=== PATIENT | female | born 1955 | race African-American/Black ===

== ENCOUNTER 2016-05-27 09:34 | Inpatient (IN) | payer MEDICAID ==
[~2016-05-27] VITALS: Ht 172.7 cm; Wt 80.0 kg
[~2016-05-27 09:34] MED LIST: B/P; DEMEROL50 MG PO; LAMICTAL ODT50 MG PO; PHENERGAN25 M1 PO; PROPRANOLOL HCL20 MG PO; PROVENTIL/2.5 MG/3 M NEB; SYMBICORT 16010.2 GM INH; TOPAMAX50 MG PO; ZOFRAN ODT4 MG/UDTAB PO
[2016-05-27 10:34] LABS: BASOPHILS 0.2 % (0.0-2.0); EOSINOPHILS 2.7 % (0-7); HEMATOCRIT 40.9 % (36.0-48.0); HEMOGLOBIN 13.6 g/dL (12-16); IMMATURE GRANULOCYTES 0.6 % (0-5); LYMPHOCYTES 29.2 % (15-50); MCH 30.8 pg (26.0-34.0); MCHC 33.3 g/dL (31.0-37.0); MCV 92.5 fL (80.0-100.0); MEAN PLATELET VOLUME 11.5 fL (7.4-10.4); MONOCYTES 5.8 % (2-11); NEUTROPHILS 61.5 % (40-80); RBC 4.42 10x6/uL (4.00-5.40); RDW 13.5 % (11.5-14.5); WBC 8.5 10x3/uL (4.8-10.8)
[2016-05-27 10:48] LABS: PLATELET COUNT 250 10x3/uL (130-400)
[2016-05-27 11:04] LABS: ALBUMIN 3.5 g/dL (3.4-5.0); ALKALINE PHOSPHATASE 91 U/L (46-116); ALT (SGPT) 30 U/L (10-68); BILIRUBIN - TOTAL 0.29 mg/dL (0.2-1.3); CALC OSMOLALITY 275 mosm/kg (275-300); CALCIUM 9.6 mg/dL (8.5-10.1); CARBON DIOXIDE 26.7 mmol/L (21.0-32.0); CHLORIDE - SERUM 106 mmol/L (98-107); CREATININE - SERUM 0.8 mg/dL (0.6-1.3); GLUCOSE 99 mg/dL (74-106); POTASSIUM - SERUM 4.5 mmol/L (3.5-5.1); PROTEIN - SERUM 7.6 g/dL (6.4-8.2); SODIUM 139 mmol/L (136-145); UREA NITROGEN 8 mg/dL (7-18); eGFR NON AFRICAN AMERICAN 77 mL/min (90-120)
--- NOTE | 2016-05-27 12:00 | NUR ---
TO ROOM 2235 FROM ER.FAMILY AT SIDE.PT IS WITHOUT DISTRESS AT PRESENT. .ORIENTATION TO ROOM.ASSESSMENT PER FLOW SHEET.IV TO LEFT FOREARM VERY TENDER,WITH SOME SWELLING NOTED.PT C/O DISCOMFORT WHEN IV BEING FLUSHED.IV DCD CATH INTACT.
[2016-05-27 12:54] VITALS: BP 149/93
[2016-05-27 15:18] VITALS: BP 149/93; Ht 172.7 cm; Wt 80.0 kg
--- NOTE | 2016-05-27 15:54 | NUR ---
Patient Name: FERNANDO ELAM Admission Status: ER Accout number: [id number] Admission Date: 05-27-2016 : 1955 Admission Diagnosis: Attending: EARNESTINE Current LOS: 1 Anticipated DC Date: 05-30-2016 Planned Disposition: Home Primary Insurance: MEDICAID [place] Discharge Planning Comments: CM MET WITH PATIENT REGARDING D/C NEEDS AND PLANS. PATIENT STATED SHE LIVES WITH HER SPOUSE (ELISE) AND HE WILL TRANSPORT HER HOME AT DISCHARGE. PATIENT STATED SHE HAS A RAMP TO ENTER HOME AND NO STAIRS ONCE INSIDE. PATIENT STATED SHE IS INDEPENDENT WITH HER CARE AND HAS A CANE AT HOME IF NEEDED. PATIENTS PCP IS DR. CALVERT AND [facility] [address] PATIENT STATED SHE DOES NOT WANT HOME HEALTH AT THIS TIME. CM WILL CONTINUE TO FOLLOW PATIENT WITH D/C NEEDS AND PLANS. [facility] [address] - [phone] ELISE (SPOUSE) [phone] Cylinder Dyer: Teri Larkin Is the patient Alert and Oriented? Yes 0 * How many steps to enter\exit or inside your home? RAMP 0 * PCP DR. CALVERT 0 * [facility] [address] [facility] * Preadmission Environment Home with Family 0 * ADLs Independent 0 * Equipment Cane 0 * List name and contact numbers for known caregivers / representatives who currently or will assist patient after discharge: ELISE (SPOUSE) [phone] * Community resources currently utilized None 0 * Additional services required to return to the preadmission environment? Yes 0 * Can the patient safely return to the preadmission environment? Yes 0 * Has this patient been hospitalized within the prior 30 days at any hospital? No 0 Grand Total: 0
[2016-05-27 16:30] VITALS: BP 131/63
--- NOTE | 2016-05-27 18:23 | NUR ---
REMAINS WITHOUT DISTRESS.STILL HAS WHEEZES THROUGH OUT LUNG CROWDER.DENIES NEEDS AT PRESENT.CONT PLAN OF CARE
[2016-05-27 19:00] VITALS: BP 128/55
--- NOTE | 2016-05-27 21:08 | NUR ---
PRN ZOFRAN ADMINISTERED FOR PT C/O OF NAUSEA WITHOUT EMESIS.
--- NOTE | 2016-05-27 21:45 | NUR ---
C/O PAIN 9/10 AND LOCATED IN BACK AND HEAD. STATES THAT DEMEROL PREVIOUSLY ADMINISTERED NOT EFFECTIVE. EXPLAINED TO PT THAT NURSE PRACTITIONER WOULD BE PAGED FOR NEW ORDERS. PT VERBALIZED UNDERSTANDING. CALL LIGHT IN REACH, BED IN LOW POSITION AND SRX2. AMBULATES TO THE BATHROOM WITH STANDBY ASSIST. OXYGENATION VIA ROOM AIR. ASSESSMENT PERFORMED PER FLOWSHEET, WILL CONTINUE WITH PLAN OF CARE.
--- NOTE | 2016-05-27 23:00 | NUR ---
SCHEDULED MEDICATIONS ADMINISTERED WELL PRN DEMEROL 100MG PER NEW ORDERS. RT ADMINISTERING BREATHING TREATMENT. SCD'S APPLIED TO BILATERAL LOWER EXTREMETIES AND EXPLAINED TO PT. PT VERBALIZES UNDERSTANDING. PROVIDED WITH FRESH ICE WATER. CALL LIGHT IN REACH, WILL CONTINUE WITH PLAN OF CARE.
--- NOTE | 2016-05-27 23:38 | NUR ---
PROVIDED PT WITH SALTINE CRACKERS AND PEANUT BUTTER AT HER REQUEST. DENIES FURTHER NEEDS. WILL CONTINUE WITH PLAN OF CARE.
[2016-05-28] VITALS: BP 143/65
[2016-05-28 04:00] VITALS: BP 125/62
--- NOTE | 2016-05-28 04:24 | NUR ---
PRN DEMEROL ADMINISTERED AT THIS TIME FOR PAIN 8/10 ALONG WITH SCHEDULED AM MEDICATIONS. PT DENIES FURTHER NEEDS. CALL LIGHT IN REACH, WILL CONTINUE WITH PLAN OF CARE.
[2016-05-28 06:44] LABS: BASOPHILS 0 % (0.0-2.0); EOSINOPHILS 0 % (0-7); HEMATOCRIT 35.2 % (36.0-48.0); HEMOGLOBIN 11.5 g/dL (12-16); IMMATURE GRANULOCYTES 0.3 % (0-5); LYMPHOCYTES 8.1 % (15-50); MCHC 32.7 g/dL (31.0-37.0); MEAN PLATELET VOLUME 11.1 fL (7.4-10.4); NEUTROPHILS 89.6 % (40-80); PLATELET COUNT 244 10x3/uL (130-400); RBC 3.96 10x6/uL (4.00-5.40); RDW 13.5 % (11.5-14.5)
[2016-05-28 06:48] LABS: MCV 88.9 fL (80.0-100.0); WBC 14.9 10x3/uL (4.8-10.8)
[2016-05-28 07:19] LABS: ALBUMIN 2.9 g/dL (3.4-5.0); ANION GAP 11.4 mmol/L (8-16); BILIRUBIN - TOTAL 0.2 mg/dL (0.2-1.3); CALCIUM 9.2 mg/dL (8.5-10.1); CARBON DIOXIDE 24.3 mmol/L (21.0-32.0); CREATININE - SERUM 0.9 mg/dL (0.6-1.3); POTASSIUM - SERUM 4.7 mmol/L (3.5-5.1); PROTEIN - SERUM 6.7 g/dL (6.4-8.2)
--- NOTE | 2016-05-28 07:47 | NUR ---
AWAKE AND ALERT. ORIENTED X3. C/O INTENSE MIGRAIN THIS AM WITH NAUSEA. WILL CALL MD FOR IV MED. LUNGS ARE CLEAR BUT SEVERLY DIMINISHED IN BILATERAL LOWER LOBES. PRODUCTIVE COUGH AT TIME. SKIN IS INTACT WITHOUT REDNESS. DENIES NEEDS OTHER THAN FOR HEADACHE. RIGHT MIDLINE TO UPPER ARM PATNET WITHOUT REDNESS AT INSERTION SITE.
[2016-05-28 07:54] VITALS: BP 132/59
--- NOTE | 2016-05-28 08:34 | NUR ---
CALLED AND GOT ORDERS FOR DEMEROL IV TO ALLEVIATE MIGRAIN. GIVEN 12.5 MG SLOW IVP FOR SAME. WILL MONITOR.
--- NOTE | 2016-05-28 09:41 | NUR ---
RESTING QUIETLY WITH EYES CLOSED. REPORTS PAIN IMPROVED AT THIS TIME. FAMILY IN ROOM
[2016-05-28 11:52] VITALS: BP 123/63
[2016-05-28 16:48] VITALS: BP 134/64
--- NOTE | 2016-05-28 18:01 | NUR ---
ATE OVER HALF OF SUPPER. NO C/O AT THIS TIME. DENIES NEEDS. NO CHANGES NOTED.
[2016-05-28 21:18] VITALS: BP 120/51
--- NOTE | 2016-05-28 21:20 | NUR ---
SCHEDULED MEDICATIONS ADMINISTERED AT THIS TIME WELL PRN DEMEROL AND ZOFRAN FOR PAIN AND NAUSEA WITHOUT EMESIS. RIGHT UPPER ARM MIDLINE PATENT WITH BRISK BLOOD RETURN PRESENT. SCD'S OFF PER PT. ASSESSMENT PERFORMED PER FLOWSHEET. SR X2 AND BED IN LOWEST POSITION. WILL CONTINUE WITH PLAN FO CARE, CALL LIGHT IN REACH.
[2016-05-29 06:42] LABS: BASOPHILS 0 % (0.0-2.0); EOSINOPHILS 0 % (0-7); HEMATOCRIT 35.6 % (36.0-48.0); HEMOGLOBIN 11.4 g/dL (12-16); IMMATURE GRANULOCYTES 0.4 % (0-5); LYMPHOCYTES 5.1 % (15-50); MCH 29.8 pg (26.0-34.0); MEAN PLATELET VOLUME 11.6 fL (7.4-10.4); MONOCYTES 2.2 % (2-11); NEUTROPHILS 92.3 % (40-80); PLATELET COUNT 250 10x3/uL (130-400); RBC 3.83 10x6/uL (4.00-5.40); RDW 13.7 % (11.5-14.5)
[2016-05-29 06:44] LABS: WBC 19.6 10x3/uL (4.8-10.8)
[2016-05-29 07:07] LABS: ALBUMIN 2.8 g/dL (3.4-5.0); BILIRUBIN - TOTAL 0.2 mg/dL (0.2-1.3); CALCIUM 8.7 mg/dL (8.5-10.1); CARBON DIOXIDE 23.9 mmol/L (21.0-32.0); PROTEIN - SERUM 6.9 g/dL (6.4-8.2)
[2016-05-29 07:11] LABS: POTASSIUM - SERUM 3.9 mmol/L (3.5-5.1)
--- NOTE | 2016-05-29 07:53 | NUR ---
AWAKE AND ALERT. ORIENTED X3. LUNGS WITH EXPIRATORY WHEEZES THROUGHOUT, OCCASSIONALLY PRODUCTIVE COUGH NOTED. SKIN IS INTACT WITHOUT REDNESS. MIDLINE ACCESS TO RIGHT UPPER ARM PATENT WITHOUT REDNESS AT INSERTION SITE. DENIES NEEDS.
[2016-05-29 08:15] VITALS: BP 125/55
--- NOTE | 2016-05-29 09:46 | NUR ---
GIVEN 12.5MG SLOW IVP DEMEROL FOR C/O MIGRAIN HEADACHE. WILL MONITOR.
[2016-05-29 11:46] VITALS: BP 132/69
--- NOTE | 2016-05-29 12:30 | NUR ---
LUNCH SERVED IN ROOM. ATE ONLY A FEW BITES. STATED SHE WAS NAUSEATED FROM HER MIGRAIN. WILL MONITOR.
--- NOTE | 2016-05-29 13:10 | NUR ---
GIVEN PHENERGAN IM 25MG. WILL MONITOR.
--- NOTE | 2016-05-29 14:00 | NUR ---
RESTING QUIETLY WITH EYES CLOSED. NO NEEDS NOTED.
--- NOTE | 2016-05-29 15:03 | NUR ---
CONTINUES WITH C/O HEADACHE. REQUESTED AND GIVEN 100MG DEMEROL PO FOR SAME. WILL MONITOR.
[2016-05-29 16:10] VITALS: BP 133/66
--- NOTE | 2016-05-29 18:30 | NUR ---
ATE ALMOST HALF OF SUPPER. REPORTS FEELING MUCH BETTER NOW. HEADACHE IS ALMOST GONE. NO CHANGES NOTED. AT BEDSIDE.
[2016-05-29 19:00] VITALS: BP 127/59
--- NOTE | 2016-05-29 20:23 | NUR ---
AWAKE,ALERT, COMPLAINS OF MIGRAINE. DEMEROL 12.5MG GIVEN IV .BILATERAL LUNG SOUNDS WITH CRACKLES NOTED.PICC LINE TO RIGHT ARM INTACT WITH NO REDNESS OR EDEMA NOTED.. CL IN REACH.
[2016-05-30] VITALS: BP 117/53
--- NOTE | 2016-05-30 01:10 | NUR ---
EYES CLOSED RESP EVEN.NO DISTRESS NOTED. CL IN REACH
[2016-05-30 04:00] VITALS: BP 143/70
--- NOTE | 2016-05-30 05:01 | NUR ---
PATIENT SLEEPING ON LEFT SIDE. HOB 30 DEGREES. RR EVEN AND UNLABORED. 0 S/S OF DISTRESS. IV TO RIGHT UPPER ARM PATENT WITH NO REDNESS OR SWELLING. NS INFUSING @ 75. SRX1. BED LOW. CALL LIGHT WITHIN REACH.
--- NOTE | 2016-05-30 06:45 | NUR ---
NO CHANGE IN ASSSESSMENAT
[2016-05-30 07:07] LABS: ALBUMIN 2.5 g/dL (3.4-5.0); ANION GAP 9.9 mmol/L (8-16); BILIRUBIN - TOTAL 0.1 mg/dL (0.2-1.3); CALCIUM 8.6 mg/dL (8.5-10.1); CARBON DIOXIDE 23.8 mmol/L (21.0-32.0); POTASSIUM - SERUM 3.7 mmol/L (3.5-5.1); PROTEIN - SERUM 6.2 g/dL (6.4-8.2)
[2016-05-30 07:30] LABS: BASOPHILS 0.1 % (0.0-2.0); EOSINOPHILS 0 % (0-7); HEMOGLOBIN 11.2 g/dL (12-16); IMMATURE GRANULOCYTES 1.5 % (0-5); LYMPHOCYTES 9.1 % (15-50); MCH 29.7 pg (26.0-34.0); MCV 92.8 fL (80.0-100.0); MEAN PLATELET VOLUME 11.7 fL (7.4-10.4); NEUTROPHILS 84.3 % (40-80); PLATELET COUNT 215 10x3/uL (130-400); RBC 3.77 10x6/uL (4.00-5.40); RDW 13.6 % (11.5-14.5); WBC 16.8 10x3/uL (4.8-10.8)
--- NOTE | 2016-05-30 07:50 | NUR ---
PATIENT GIVEN PAIN MEDICATION FOR SAMANIEGO THAT SHE RATES A 10. MEDICATION GIVEN FOR NAUSEA WELL. IVF INFUSING TO R UPPER ARM ORDERED. MONITORING.
[2016-05-30 08:04] VITALS: BP 133/63
--- NOTE | 2016-05-30 08:43 | NUR ---
PATIENT STATES THAT THE PAIN IN HER HEAD REMAINS AN 8. SHE DECLINES OFFER TO CLOSE HER DOOR, STATES THAT SHE DOESN'T LIKE TO BE CLOSED IN. HER TV IS ON, VOLUME LOW. SHE IS WEARING DARK GLASSES. PLEASANT TO TALK TO. DENIED NEEDS AT THIS TIME.
--- NOTE | 2016-05-30 10:04 | NUR ---
DAUGHTER AND MANY FAMILY MEMBERS AT THE BEDSIDE. TOOK MEDICATIONS. SOLUMEDROL EXPLAINED. DENEID NEEDS AT THIS TIME.
[2016-05-30 11:39] VITALS: BP 135/64
--- NOTE | 2016-05-30 15:35 | NUR ---
PATIENT RESTING QUIETLY WITH LIGHTS OUT, TV ON, VOLUME LOW. AT THE BEDSIDE.
[2016-05-30 15:36] VITALS: BP 135/63
[2016-05-30 19:00] VITALS: BP 138/72
--- NOTE | 2016-05-30 20:14 | NUR ---
AWAKE,ALERT. NO COMPLAINTS VOICED. NS INFUSING TO RIGHT ARM WIHTOUT REDNESS OR EDEMA NOTED. BILATERAL LUNG SOUNDS WIHT WHEEZING NOTED. NONPRODUCTIVE COUGH. CL IN REACCH. FAMILY AT BEDSIDE.
[2016-05-31] VITALS: BP 142/74
--- NOTE | 2016-05-31 00:47 | NUR ---
PATIENT SLEEPING ON LEFT SIDE WITH NO DISTRESS NOTED. HOB 20 DEGREES. RR EVEN AND UNLABORED. IV TO RIGHT ARM PATENT AND INFUSING NS @75. SRX1. BED LOW. CALL LIGHT WITHIN REACH.
[2016-05-31 04:00] VITALS: BP 146/72
[2016-05-31 07:45] LABS: BASOPHILS 0 % (0.0-2.0); EOSINOPHILS 0 % (0-7); HEMOGLOBIN 11.8 g/dL (12-16); IMMATURE GRANULOCYTES 1.6 % (0-5); LYMPHOCYTES 9.5 % (15-50); MCH 29.4 pg (26.0-34.0); MCHC 32.8 g/dL (31.0-37.0); MEAN PLATELET VOLUME 12.2 fL (7.4-10.4); MONOCYTES 5.5 % (2-11); NEUTROPHILS 83.4 % (40-80); PLATELET COUNT 199 10x3/uL (130-400); RBC 4.02 10x6/uL (4.00-5.40); RDW 13.3 % (11.5-14.5); WBC 13.4 10x3/uL (4.8-10.8)
[2016-05-31 07:47] LABS: MCV 89.6 fL (80.0-100.0)
[2016-05-31 07:49] LABS: ALBUMIN 2.7 g/dL (3.4-5.0); ALKALINE PHOSPHATASE 69 U/L (46-116); ALT (SGPT) 20 U/L (10-68); BILIRUBIN - TOTAL 0.16 mg/dL (0.2-1.3); CALC OSMOLALITY 283 mosm/kg (275-300); CHLORIDE - SERUM 109 mmol/L (98-107); CREATININE - SERUM 0.8 mg/dL (0.6-1.3); GLUCOSE 127 mg/dL (74-106); POTASSIUM - SERUM 3.7 mmol/L (3.5-5.1); PROTEIN - SERUM 6.1 g/dL (6.4-8.2); SODIUM 142 mmol/L (136-145); eGFR NON AFRICAN AMERICAN 77 mL/min (90-120)
[2016-05-31 07:50] LABS: UREA NITROGEN 11 mg/dL (7-18)
[2016-05-31 08:10] VITALS: BP 131/71
--- NOTE | 2016-05-31 08:57 | NUR ---
PATIENT IS AWAKE AND ALERT AND ORIENTED X3, SHE SAYS HER PAIN IS IN HER HEAD. C/O MIGRAINE.
--- NOTE | 2016-05-31 09:07 | NUR ---
PATIET C/O NAUSEA. ZOFRAN GIVEN NOW, WILL WAIT TO GIVE PO MEDS TIL AFTER HER ZOFRAN HELPS WITH NAUSEA.
--- NOTE | 2016-05-31 10:14 | NUR ---
PATIENT STILL C/O NAUSEA AND DOES NOT WANT ANY PO MEDS, REQUESTS THAT DR BE CALLED TO GET A STRONGER PAIN MEDICINE.
--- NOTE | 2016-05-31 10:18 | NUR ---
DR. MILLS PAGED TO ASK ABOUT AN INCREASE IN PAIN MEDICATION.
--- NOTE | 2016-05-31 10:21 | NUR ---
DR. MILLS RETURNED PAGE, NEW ORDER RECEIVED DEMEROL 50 MG/PHENERGAN 25 MG IVP ONE TIME ORDER.
--- NOTE | 2016-05-31 10:22 | NUR ---
ORDER IS FOR DEMEROL AND PHENERGAN IM, SEE MAR.
--- NOTE | 2016-05-31 10:40 | NUR ---
PATIENT RECEIVED IM PHENERGAN AND DEMEROL IN RIGHT DELTOID PER PATIENT REQUEST.
--- NOTE | 2016-05-31 11:10 | NUR ---
PATIENT SAYS HER PAIN IS STILL AT 8/10. HAS EYES COVERED WITH BLANKET.
[2016-05-31 11:41] VITALS: BP 126/66
--- NOTE | 2016-05-31 12:01 | NUR ---
CHECKED PATIENT SHE IS BETTER, HAS VISITORS AT BEDSIDE, SAYS SHE IS BETTER, BUT PAIN IS AT 7/10.
[2016-05-31 16:03] VITALS: BP 107/59
--- NOTE | 2016-05-31 17:51 | NUR ---
SPOUSE CALLED TO CHECK ON HER, SHE C/O H/A. BREATHING OK.
--- NOTE | 2016-05-31 18:41 | NUR ---
PATIENT LYING IN BED, HEAD COVERED, DID NOT EAT DINNER.
[2016-05-31 19:00] VITALS: BP 148/66
[2016-06-01] VITALS: BP 130/59
--- NOTE | 2016-06-01 03:45 | NUR ---
PATIENT IN BED WATCHING TV. HOB 10 DEGREES. RR EVEN AND UNLABORED. 0 S/S OF DISTRESS. IV TO RIGHT FA PATENT INFUSING NS @ 75. SCD'S IN ROOM BUT OFF. SRX2. BED LOW. CALL LIGHT WITHIN REACH.
[2016-06-01 04:00] VITALS: BP 136/77
[2016-06-01 06:14] LABS: BASOPHILS 0.1 % (0.0-2.0); EOSINOPHILS 0 % (0-7); HEMATOCRIT 36.4 % (36.0-48.0); IMMATURE GRANULOCYTES 1.4 % (0-5); LYMPHOCYTES 16.7 % (15-50); MCH 29.4 pg (26.0-34.0); MCV 89.2 fL (80.0-100.0); MEAN PLATELET VOLUME 11.7 fL (7.4-10.4); MONOCYTES 6.2 % (2-11); NEUTROPHILS 75.6 % (40-80); PLATELET COUNT 194 10x3/uL (130-400); RBC 4.08 10x6/uL (4.00-5.40); RDW 13.2 % (11.5-14.5)
[2016-06-01 06:42] LABS: ALBUMIN 2.5 g/dL (3.4-5.0); ALKALINE PHOSPHATASE 67 U/L (46-116); ALT (SGPT) 18 U/L (10-68); BILIRUBIN - TOTAL 0.23 mg/dL (0.2-1.3); CALC OSMOLALITY 284 mosm/kg (275-300); CALCIUM 8.8 mg/dL (8.5-10.1); CARBON DIOXIDE 27.8 mmol/L (21.0-32.0); CHLORIDE - SERUM 108 mmol/L (98-107); CREATININE - SERUM 0.8 mg/dL (0.6-1.3); GLUCOSE 127 mg/dL (74-106); POTASSIUM - SERUM 3.3 mmol/L (3.5-5.1); SODIUM 142 mmol/L (136-145); UREA NITROGEN 12 mg/dL (7-18); eGFR NON AFRICAN AMERICAN 77 mL/min (90-120)
--- NOTE | 2016-06-01 07:15 | NUR ---
PATIENT IS UP AND WALKING AROUND IN HER ROOM. PATIENT IS AWAKE, ALERT, AND ORIENTED X4. NO COMPLAINTS OF PAIN OR NAUSEA AT PRESENT TIME. PATIENT DENIES ANY NEEDS AT PRESENT TIME. CALL LIGHT IN REACH. WILL MONITOR PATIENT.
[2016-06-01 07:49] VITALS: BP 150/72
--- NOTE | 2016-06-01 09:25 | NUR ---
PATIENT RESTING QUIETLY IN BED WITH HER EYES CLOSED. ROOM IS DARK. PATIENT AWAKENS TO VERBAL STIMULI. PATIENT COMPLAINS OF PAIN IN HER HEAD AND NAUSEA. NO VOMITING NOTED AT PRESENT TIME. PATIENT RATES HER PAIN LEVEL A "9" ON A 0-10 SCALE. ASSESSMENT COMPLETED PER FLOWSHEET. SCHEDULED MORNING MEDICATIONS GIVEN TO PATIENT. PATIENT TOLERATED WELL WITH WATER. CALL LIGHT IN REACH. WILL CONTINUE TO MONITOR PATIENT.
--- NOTE | 2016-06-01 11:25 | NUR ---
PATIENT RESTING IN BED. ROOM IS DARK. PATIENT WEARING HER SUNGLASSES. PATIENT DENIES ANY NEEDS AT PRESENT TIME. CALL LIGHT IN PATIENT'S REACH. WILL MONITOR.
[2016-06-01 12:22] VITALS: BP 149/72
[2016-06-01 16:00] VITALS: BP 128/80
--- NOTE | 2016-06-01 19:45 | NUR ---
PATIENT LYING IN BED WITH WASHCLOTH OVER EYES MOANING, DAY SHIFT NURSE REPORTED THAT PAIN MEDS WERE DC'D AND MD HAD BEEN PAGED, AWAITNG RETURN CALL, VISITORS IN ROOM, ASSESSMENT COMPLETED, SR'S UP X2, CL IN REACH, WILL MONITOR
[2016-06-01 20:43] VITALS: BP 118/70
--- NOTE | 2016-06-01 21:15 | NUR ---
PATIENT REFUSED ALL MEDS, STATES " I CAN'T HOLD THEM DOWN", FAMILY IN ROOM, VERY IRATE THAT PATIENT HAS NO IV PAIN MEDS, BARBER INSTRUCTOR CONTACTED
--- NOTE | 2016-06-01 22:26 | NUR ---
DEMEROL AND PHENERGAN GIVEN PER MAR, JOHN WELL, CL IN REACH, WILL CONTINUE TO MONITOR
--- NOTE | 2016-06-01 23:13 | NUR ---
PT AGREED TO TAKE INDERAL AND SOLUMEDROL, JOHN WELL, CONTINUES TO WEAR SUN GLASSES, VISITOR IN ROOM
--- NOTE | 2016-06-02 01:40 | NUR ---
RESTING WITH EYES CLOSED, NO DISTRESS NOTED, CL IN REACH
--- NOTE | 2016-06-02 02:49 | NUR ---
DEMEROL GIVEN PER MAR FOR HEADACHE, DENIES OTHER NEEDS, SR'S UP X2, CL IN REACH
[2016-06-02 06:15] LABS: BASOPHILS 0 % (0.0-2.0); EOSINOPHILS 0.1 % (0-7); HEMOGLOBIN 13.5 g/dL (12-16); IMMATURE GRANULOCYTES 0.5 % (0-5); LYMPHOCYTES 10.5 % (15-50); MCH 29.2 pg (26.0-34.0); MCHC 32.9 g/dL (31.0-37.0); MCV 88.7 fL (80.0-100.0); MEAN PLATELET VOLUME 12.2 fL (7.4-10.4); MONOCYTES 1.9 % (2-11); PLATELET COUNT 203 10x3/uL (130-400); RBC 4.62 10x6/uL (4.00-5.40); RDW 13.4 % (11.5-14.5); WBC 12.8 10x3/uL (4.8-10.8)
[2016-06-02 06:33] LABS: ALBUMIN 2.8 g/dL (3.4-5.0); BILIRUBIN - TOTAL 0.36 mg/dL (0.2-1.3); CALCIUM 8.9 mg/dL (8.5-10.1); CREATININE - SERUM 0.9 mg/dL (0.6-1.3); PROTEIN - SERUM 6.8 g/dL (6.4-8.2)
[2016-06-02 06:40] LABS: ANION GAP 12.1 mmol/L (8-16); POTASSIUM - SERUM 4.1 mmol/L (3.5-5.1)
--- NOTE | 2016-06-02 07:32 | NUR ---
AWAKE AND ALERT. ORIENTED X3. C/O MIGRAIN HEADACHE THAT IS UNRELIEVED WITH PAIN MEDS. REQUESTED AND GIVEN 25MG DEMEROL SLOW IVP WITH 25MG PHENERGAN IM FOR SAME. WILL MONITOR. LUNGS ARE CLEAR BUT DIMINISHED THROUGHOUT LUNG CROWDER. OCCASSIONAL DRY COUGH NOTED. SKIN IS INTACT WITHOUT REDNESS. MIDLINE ACCESS TO RIGHT UPPER ARM IS PATENT WITHOUT REDNESS AT INSERTION SITE. DENIES NEEDS. AT BEDSIDE.
[2016-06-02 08:04] VITALS: BP 149/89
--- NOTE | 2016-06-02 10:00 | NUR ---
RESTING QUIETLY WITH EYES CLOSED. REPORTS PAIN IMPROVED SLIGHTLY.
[2016-06-02 11:56] VITALS: BP 124/66
--- NOTE | 2016-06-02 15:09 | NUR ---
RESTING QUEITLY WITH EYES CLOSED. REPORTS SOME RELIEF WITH USE OF DEMEROL.
[2016-06-02 15:59] VITALS: BP 143/76
[2016-06-02 19:00] VITALS: BP 113/47
--- NOTE | 2016-06-02 19:03 | NUR ---
ABLE TO EAT MOST OF SUPPER. REPORTS MIGRAIN ALMOST COMPLETELY GONE
--- NOTE | 2016-06-02 20:15 | NUR ---
PRN DEMEROL AND PHENREGAN GIVEN FOR C/O PAIN AND NAUSEA, JOHN WELL, ASSESSMENT COMPLETED, DENIES FURTHER NEEDS, SR'S UP X2, CL IN REACH, WILL MONITOR
[2016-06-03] VITALS: BP 126/65
--- NOTE | 2016-06-03 00:15 | NUR ---
MAXIPIME HUNG PER MAR, JOHN WELL, CL IN REACH
[2016-06-03 04:00] VITALS: BP 145/73
[2016-06-03 05:03] LABS: BASOPHILS 0 % (0.0-2.0); EOSINOPHILS 0.2 % (0-7); HEMATOCRIT 37.3 % (36.0-48.0); HEMOGLOBIN 12.3 g/dL (12-16); IMMATURE GRANULOCYTES 0.5 % (0-5); MCH 30.3 pg (26.0-34.0); MEAN PLATELET VOLUME 12.2 fL (7.4-10.4); MONOCYTES 4.9 % (2-11); NEUTROPHILS 77.4 % (40-80); RBC 4.06 10x6/uL (4.00-5.40); RDW 13.5 % (11.5-14.5)
[2016-06-03 05:08] LABS: MCV 91.9 fL (80.0-100.0); PLATELET COUNT 160 10x3/uL (130-400); WBC 16.6 10x3/uL (4.8-10.8)
[2016-06-03 05:23] LABS: ALBUMIN 2.5 g/dL (3.4-5.0); BILIRUBIN - TOTAL 0.2 mg/dL (0.2-1.3); CALCIUM 7.9 mg/dL (8.5-10.1); CARBON DIOXIDE 26.5 mmol/L (21.0-32.0); CREATININE - SERUM 0.9 mg/dL (0.6-1.3); PROTEIN - SERUM 5.5 g/dL (6.4-8.2)
[2016-06-03 05:28] LABS: ANION GAP 9.7 mmol/L (8-16); POTASSIUM - SERUM 3.2 mmol/L (3.5-5.1)
[2016-06-03 08:07] VITALS: BP 138/65
--- NOTE | 2016-06-03 09:00 | NUR ---
ASSESSMENT PER FLOW SHEET.PT WITHOUT DISTRESS.CALL LIGHT IN REACH
[2016-06-03 12:09] VITALS: BP 137/69
--- NOTE | 2016-06-03 14:32 | NUR ---
NUTRITION MONITORING & EVAL CHART REVIEWED. PT CONTINUES SPORADIC INTAKE REG DIET. REMAINS AT LOW NUTRITIONAL RISK. RD FOLLOWING
[2016-06-03] MEDS ORDERED: MUCINEX DM ER1 EAC1 PO (14:33)
[2016-06-03] MEDS ORDERED: BENZONATATE200 MG PO (14:33)
[2016-06-03] MEDS ORDERED: SINGULAIR10 MG PO (14:33)
[2016-06-03] MEDS ORDERED: LEVAQUIN750 MG PO (14:35)
[2016-06-03] MEDS ORDERED: OMNICEF300 MG PO (14:36)
[2016-06-03] MEDS ORDERED: PREDNISONE20 MG PO (14:36)
[2016-06-03] MEDS ORDERED: ALBUTEROL2.5 MG/3 M UPD (14:58)
[2016-06-03] MEDS ORDERED: PROTONIX40 MG PO (15:05)
[2016-06-03 16:37] VITALS: BP 148/84
--- NOTE | 2016-06-03 18:02 | NUR ---
IV DCD CATH INTACT.DISCHARGE INSTRUCTIONS,STATES UNDERSTANDING.LEFT FLOOR VIA WHEELCHAIR FOR TRANSPORT HOME
--- NOTE | 2016-06-19 09:12 | CN ---
PATIENT NAME:FERNANDO ELAM MEDICAL RECORD: [id number] : 53 LOCATION:[id number] ADMIT DATE: 05/27/16 ACCOUNT: [id number] CONSULTING PHYSICIAN: SUSANA HARRIS MD REFERRING PHYSICIAN: ABELINO MORALES MD DATE OF CONSULTATION: 05/27/2016 Pulmonary Consultation CONSULT REQUESTING PHYSICIAN: Abelino Morales MD REASON FOR CONSULTATION: Pneumonia, acute exacerbation of asthma. HISTORY OF PRESENT ILLNESS: Ms. Elam is a 61-year-old very pleasant lady who just came back from cruise vacation. Two weeks ago, she was sick and she was seen in Dr. Calvert' office. She was given some antibiotic, but the patient was not getting any better. She had worsening shortness of breath. She was wheezing. She was coughing. Cough with productive yellow color sputum production. She has shortness of breath with mild exertion. She has a spasmodic cough, which keeps her awake at night. She does have a gastroesophageal reflux. According to the patient, sometimes it flares up and she has regurgitation. REVIEW OF SYSTEMS: Mainly in the history of present illness. PAST MEDICAL HISTORY: 1. Asthma. 2. Gastroesophageal reflux disease. 3. She has a history of allergic sinusitis. 4. Migraine headache. PAST SURGICAL HISTORY: 1. Cholecystectomy. 2. Hysterectomy. 3. Exploratory laparotomy in the past. ALLERGIES: SHE IS ALLERGIC TO VICODIN, POSSIBLE TYLENOL, STADOL, THORAZINE, CODEINE, VICODIN, COMPAZINE, AND IMITREX. PRESENT MEDICATIONS: On [employer] was reviewed. PERSONAL AND SOCIAL HISTORY: The patient is . She lives with her . She is a nonsmoker and nondrinker. FAMILY HISTORY: Noncontributory. PHYSICAL EXAMINATION: GENERAL: Now, the patient is lying comfortably in bed. She is not in acute distress, but she has audible wheeze. VITAL SIGNS: The blood pressure is 149/93, pulse is 95, temperature 98.8, and SpO2 is 95% on room air. HEENT: Conjunctivae are pink, sclerae nonicteric. NECK: Supple. No JVD. The throat is congested. CHEST: There is prolonged expiration with wheezing. There is right basal crackle. CONSULT REPORT [id number] FERNANDO ELAM HEART: Regular, normal sound, no murmur. ABDOMEN: Soft, bowel sounds present. No hepatosplenomegaly. RECTAL: Deferred. EXTREMITIES: No cyanosis, no clubbing, no pedal edema. SKIN: Warm, normal turgor. CENTRAL NERVOUS SYSTEM: The patient is awake and alert. There is no obvious cranial nerve abnormality. The gait was not tested. DIAGNOSTIC DATA: Chest radiograph: There is ill-defined infiltrate at the right base. LABORATORY DATA: CBC: WBC 8.5, hemoglobin 13.6, hematocrit 40.9 and the platelet count is 250. Chemistry: Sodium is 139, potassium 4.5, BUN is 8, creatinine 0.8. ABG: The pH is 7.38, pCO2 of 37.7, pO2 is 85, and bicarbonate 2.8. IMPRESSION: 1. Acute exacerbation of asthma. 2. Pneumonia, right lower lobe, most likely consistent with a community-acquired pneumonia. 3. Wheezing secondary to asthma exacerbation. 4. Acute cough. 5. Dyspnea. 6. Migraine headache. 7. Gastroesophageal reflux disease. RECOMMENDATION: 1. GERD precautions were given. 2. Continue Protonix, albuterol and ipratropium nebulizer q.4 hourly, budesonide and Brovana nebulizer b.i.d., Singulair 10 mg daily, methylprednisolone 60 MG IV q.8 hourly. Repeat the chest radiograph in the morning. Check IgE level. Follow up labs in the morning. Dr. Morales, once again, thank you for involving me in the care of Ms. Elam. TRANSINT:[id number] Voice Confirmation ID: [id number] DOCUMENT ID: [id number] SUSANA HARRIS MD at 0912 CC: JUVENTINO CALVERT MD [id number] DICTATION DATE: 05/27/16 1542 HUMIDIFIER OPERATOR: 05/27/16 1635 DIS IN 06/03/16 [id number] [place] [address]
== END 2016-06-03 18:05 | disposition home or self-care (01) | DRG 178 ==
LOC: D.ER 09:34 → D.MS 11:17
PROVIDERS: Emergency Medicine; ADMIT Family Medicine Adult Medicine
PROC: 05HB33Z Insertion of Infusion Device into Right Basilic Vein, Percutaneous Approach (ICD-10-PCS; principal; 2016-05-27)
DX: J15.6 Pneumonia due to other Gram-negative bacteria (principal); J45.901 Unspecified asthma with (acute) exacerbation; J90 Pleural effusion, not elsewhere classified; K21.9 Gastro-esophageal reflux disease without esophagitis; G43.909 Migraine, unspecified, not intractable, without status migrainosus

== ENCOUNTER 2016-06-10 07:58 | Emergency (ER) | payer MEDICAID ==
[2016-05-27 15:18] VITALS: BMI 26.8
[~2016-06-10 07:58] MED LIST changes: +ALBUTEROL2.5 MG/3 M UPD; +BENZONATATE200 MG PO; +LEVAQUIN750 MG PO; +MUCINEX DM ER1 EAC1 PO; +OMNICEF300 MG PO; +PREDNISONE20 MG PO; +PROTONIX40 MG PO; +SINGULAIR10 MG PO
== END 2016-06-10 08:52 | disposition home or self-care (01) ==
LOC: D.ER 07:58
DX: J01.90 Acute sinusitis, unspecified (principal); J45.909 Unspecified asthma, uncomplicated; K58.9 Irritable bowel syndrome, unspecified

== ENCOUNTER → 2016-06-12 11:58 | Outpatient (CLI) | payer MEDICAID ==
[2016-06-12 12:45] VITALS: BP 141/64; Ht 172.7 cm
--- NOTE | 2016-06-12 12:47 | NUR ---
1220 PATIENT HERE WITH MIGRAINE HEADACHE, BAD COUGH ALSO FROM RECENT PNEUMONIA NOTED, GIVEN DEMEROL 100MG AND 25MG PHENERGAN IM TO RIGHT THIGH REQUESTED. NO PROBLEMS WITH INJECTION 1230 PATIENT WITHOUT PROBLEMS FROM INJECTION NOTED, DISCHARGED IN WHEELCHAIR TO TO GO HOME STABLE.
== END | disposition home or self-care (01) ==
LOC: D.OPS 11:58
DX: G43.909 Migraine, unspecified, not intractable, without status migrainosus (principal)

== ENCOUNTER 2016-07-03 17:09 | Outpatient (CLI) | payer MEDICAID ==
[~2016-07-03] VITALS: Ht 172.7 cm; Wt 80.0 kg
[2016-07-03 17:44] VITALS: BP 148/91; Ht 172.7 cm; Wt 80.0 kg
--- NOTE | 2016-07-03 18:23 | NUR ---
1752 DEMEROL 100MG AND PHENERGAN 25 MG GIVEN IM RT THIGH. PAIN LEVELA 10.
--- NOTE | 2016-07-03 18:24 | NUR ---
1813 PAIN A 7 DISCHARGE INSTRUCTIONS GIVEN AND PATIENT LEFT VIA W/C AND INSTRUCTED NO DRIVING ACCOMPAANIED BY .
== END 2016-07-03 18:15 | disposition home or self-care (01) ==
LOC: D.OPS 17:09
DX: R51 Headache (principal)

== ENCOUNTER 2016-07-09 16:18 | Outpatient (CLI) | payer MEDICAID ==
[~2016-07-09] VITALS: Ht 172.7 cm; Wt 77.3 kg
[2016-07-09 17:32] VITALS: BP 147/78; Ht 172.7 cm; Wt 77.3 kg
== END 2016-07-09 17:45 | disposition home or self-care (01) ==
LOC: D.OPS 16:18
DX: G43.909 Migraine, unspecified, not intractable, without status migrainosus (principal)

== ENCOUNTER 2016-07-21 09:32 | Emergency (ER) | payer MEDICAID ==
[2016-07-09 17:32] VITALS: BMI 25.9
== END 2016-07-21 13:29 | disposition home or self-care (01) ==
LOC: D.ER 09:32
DX: G43.909 Migraine, unspecified, not intractable, without status migrainosus (principal); R11.2 Nausea with vomiting, unspecified; J45.909 Unspecified asthma, uncomplicated; K58.9 Irritable bowel syndrome, unspecified

== ENCOUNTER → 2016-08-01 09:52 | Outpatient (CLI) | payer MEDICAID ==
[2016-07-09 17:32] VITALS: BMI 25.9
== END | disposition home or self-care (01) ==
LOC: D.RT 09:52
DX: J45.909 Unspecified asthma, uncomplicated (principal)

== ENCOUNTER 2016-08-04 17:33 | Emergency (ER) | payer MEDICAID ==
[2016-07-09 17:32] VITALS: BMI 25.9
== END 2016-08-04 20:09 | disposition home or self-care (01) ==
LOC: D.ER 17:33
DX: R51 Headache (principal); K58.9 Irritable bowel syndrome, unspecified; J45.909 Unspecified asthma, uncomplicated

== ENCOUNTER 2016-08-08 16:14 | Outpatient (CLI) | payer MEDICAID ==
[~2016-08-08] VITALS: Ht 172.7 cm; Wt 78.6 kg
[2016-08-08 16:42] VITALS: BP 131/69; Ht 172.7 cm; Wt 78.6 kg
== END 2016-08-08 17:03 | disposition home or self-care (01) ==
LOC: D.OPS 16:14
DX: G43.909 Migraine, unspecified, not intractable, without status migrainosus (principal)

== ENCOUNTER 2016-08-14 07:05 | Emergency (ER) | payer MEDICAID ==
[2016-08-08 16:42] VITALS: BMI 26.3
[2016-08-14 08:45] LABS: APPEARANCE SLT CLOUDY (CLEAR); COLOR YELLOW (YELLOW)
[2016-08-14 08:46] LABS: BILIRUBIN NEGATIVE (NEGATIVE); GLUCOSE NEGATIVE (NEGATIVE); KETONE NEGATIVE (NEGATIVE); LEUKOCYTE ESTERASE TRACE (NEGATIVE); NITRITE NEGATIVE (NEGATIVE); PROTEIN NEGATIVE (NEGATIVE); UROBILINOGEN NORMAL (NORMAL)
[2016-08-14 08:47] LABS: BACTERIA FEW /hpf (NONE SEEN); MUCUS >1+ /lpf (NONE SEEN); RED CELLS - URINE OCC /hpf (0-5); WHITE CELLS - URINE 0-5 /hpf (0-5)
[2016-08-14 09:53] LABS: BASOPHILS 0.3 % (0.0-2.0); EOSINOPHILS 1.4 % (0-7); HEMATOCRIT 38.7 % (36.0-48.0); HEMOGLOBIN 12.7 g/dL (12-16); IMMATURE GRANULOCYTES 0.3 % (0-5); MCH 28.7 pg (26.0-34.0); MCHC 32.8 g/dL (31.0-37.0); MCV 87.6 fL (80.0-100.0); MEAN PLATELET VOLUME 12.6 fL (7.4-10.4); MONOCYTES 6.3 % (2-11); NEUTROPHILS 56.7 % (40-80); PLATELET COUNT 161 10x3/uL (130-400); RBC 4.42 10x6/uL (4.00-5.40); RDW 13.3 % (11.5-14.5); WBC 6.3 10x3/uL (4.8-10.8)
[2016-08-14 10:09] LABS: ALBUMIN 3.4 g/dL (3.4-5.0); ALKALINE PHOSPHATASE 93 U/L (46-116); ALT (SGPT) 16 U/L (10-68); BILIRUBIN - TOTAL 0.39 mg/dL (0.2-1.3); CALC OSMOLALITY 283 mosm/kg (275-300); CALCIUM 8.5 mg/dL (8.5-10.1); CARBON DIOXIDE 31.4 mmol/L (21.0-32.0); CHLORIDE - SERUM 106 mmol/L (98-107); CREATININE - SERUM 0.8 mg/dL (0.6-1.3); GLUCOSE 106 mg/dL (74-106); LIPASE 82 U/L (73-393); POTASSIUM - SERUM 3.2 mmol/L (3.5-5.1); PROTEIN - SERUM 6.8 g/dL (6.4-8.2); SODIUM 144 mmol/L (136-145); TROPONIN-I < 0.017 ng/mL (0.000-0.060); UREA NITROGEN 5 mg/dL (7-18); eGFR NON AFRICAN AMERICAN 77 mL/min (90-120)
== END 2016-08-14 11:05 | disposition home or self-care (01) ==
LOC: D.ER 07:05
PROVIDERS: Emergency Medicine
DX: N61.0 Mastitis without abscess (principal); R10.13 Epigastric pain; J45.909 Unspecified asthma, uncomplicated; K58.9 Irritable bowel syndrome, unspecified

== ENCOUNTER 2016-09-02 16:44 | Outpatient (CLI) | payer MEDICAID ==
[~2016-09-02] VITALS: Ht 172.7 cm; Wt 80.9 kg
[2016-09-02 17:48] VITALS: Ht 172.7 cm; Wt 80.9 kg
== END 2016-09-02 18:09 | disposition home or self-care (01) ==
LOC: D.OPS 16:44
DX: G43.909 Migraine, unspecified, not intractable, without status migrainosus (principal)

== ENCOUNTER 2016-09-11 13:54 | Emergency (ER) | payer MEDICAID ==
[2016-09-02 17:48] VITALS: BMI 27.1
== END 2016-09-11 16:05 | disposition home or self-care (01) ==
LOC: D.ER 13:54
DX: G43.909 Migraine, unspecified, not intractable, without status migrainosus (principal); K58.9 Irritable bowel syndrome, unspecified

== ENCOUNTER 2016-09-18 06:41 | Emergency (ER) | payer MEDICAID ==
[2016-09-02 17:48] VITALS: BMI 27.1
== END 2016-09-18 08:10 | disposition home or self-care (01) ==
LOC: D.ER 06:41
DX: G43.909 Migraine, unspecified, not intractable, without status migrainosus (principal); J45.909 Unspecified asthma, uncomplicated; K58.9 Irritable bowel syndrome, unspecified

== ENCOUNTER → 2016-10-17 07:04 | Outpatient (CLI) | payer MEDICAID ==
[2016-09-02 17:48] VITALS: BMI 27.1
== END | disposition home or self-care (01) ==
LOC: D.CT 07:04
DX: G43.109 Migraine with aura, not intractable, without status migrainosus (principal)

== ENCOUNTER 2016-10-25 08:12 | Emergency (ER) | payer MEDICAID ==
[2016-09-02 17:48] VITALS: BMI 27.1
== END 2016-10-25 09:35 | disposition home or self-care (01) ==
LOC: D.ER 08:12
DX: G43.909 Migraine, unspecified, not intractable, without status migrainosus (principal)

== ENCOUNTER 2016-11-08 13:50 | Emergency (ER) | payer MEDICAID ==
[2016-09-02 17:48] VITALS: BMI 27.1
== END 2016-11-08 17:58 | disposition home or self-care (01) ==
LOC: D.ER 13:50
DX: R51 Headache (principal); G43.909 Migraine, unspecified, not intractable, without status migrainosus

== ENCOUNTER 2016-11-22 08:52 | Emergency (ER) | payer MEDICAID ==
[2016-09-02 17:48] VITALS: BMI 27.1
== END 2016-11-22 11:25 | disposition home or self-care (01) ==
LOC: D.ER 08:52
DX: G43.909 Migraine, unspecified, not intractable, without status migrainosus (principal); J45.909 Unspecified asthma, uncomplicated; K58.9 Irritable bowel syndrome, unspecified

== ENCOUNTER 2016-12-04 14:28 | Emergency (ER) | payer MEDICAID ==
[2016-09-02 17:48] VITALS: BMI 27.1
== END 2016-12-04 16:03 | disposition home or self-care (01) ==
LOC: D.ER 14:28
DX: G43.909 Migraine, unspecified, not intractable, without status migrainosus (principal); E86.0 Dehydration; J45.909 Unspecified asthma, uncomplicated; K58.9 Irritable bowel syndrome, unspecified

== ENCOUNTER 2017-01-06 12:12 | Emergency (ER) | payer MEDICAID ==
[2016-09-02 17:48] VITALS: BMI 27.1
== END 2017-01-06 14:08 | disposition home or self-care (01) ==
LOC: D.ER 12:12
DX: G43.909 Migraine, unspecified, not intractable, without status migrainosus (principal); J01.90 Acute sinusitis, unspecified; J40 Bronchitis, not specified as acute or chronic; H53.149 Visual discomfort, unspecified; R11.2 Nausea with vomiting, unspecified

== ENCOUNTER 2017-01-14 05:55 | Emergency (ER) | payer MEDICAID ==
[2016-09-02 17:48] VITALS: BMI 27.1
== END 2017-01-14 06:29 | disposition home or self-care (01) ==
LOC: D.ER 05:55
DX: R51 Headache (principal)

== ENCOUNTER 2017-01-30 14:34 | Emergency (ER) | payer MEDICAID ==
[2016-09-02 17:48] VITALS: BMI 27.1
== END 2017-01-30 16:53 | disposition home or self-care (01) ==
LOC: D.ER 14:34
DX: R51 Headache (principal); K58.9 Irritable bowel syndrome, unspecified; J45.909 Unspecified asthma, uncomplicated

== ENCOUNTER 2017-02-16 03:41 | Emergency (ER) | payer MEDICAID ==
[2016-09-02 17:48] VITALS: BMI 27.1
== END 2017-02-16 04:39 | disposition home or self-care (01) ==
LOC: D.ER 03:41
DX: G43.919 Migraine, unspecified, intractable, without status migrainosus (principal); J45.909 Unspecified asthma, uncomplicated; K58.9 Irritable bowel syndrome, unspecified

== ENCOUNTER 2017-03-13 05:54 | Emergency (ER) | payer MEDICAID ==
[2016-09-02 17:48] VITALS: BMI 27.1
== END 2017-03-13 06:54 | disposition home or self-care (01) ==
LOC: D.ER 05:54
DX: G43.909 Migraine, unspecified, not intractable, without status migrainosus (principal)

== ENCOUNTER 2017-03-23 06:57 | Emergency (ER) | payer MEDICAID ==
[2016-09-02 17:48] VITALS: BMI 27.1
== END 2017-03-23 08:29 | disposition home or self-care (01) ==
LOC: D.ER 06:57
DX: M54.5 Low back pain (principal)

== ENCOUNTER 2017-03-24 11:08 | Emergency (ER) | payer MEDICAID ==
[2016-09-02 17:48] VITALS: BMI 27.1
[2017-03-24 12:06] LABS: APPEARANCE HAZY (CLEAR); BACTERIA MANY /hpf (NONE SEEN); BILIRUBIN NEGATIVE (NEGATIVE); COLOR YELLOW (YELLOW); GLUCOSE NEGATIVE (NEGATIVE); KETONE NEGATIVE (NEGATIVE); MUCUS >1+ /lpf (NONE SEEN); NITRITE NEGATIVE (NEGATIVE); PROTEIN NEGATIVE (NEGATIVE); RED CELLS - URINE 0-5 /hpf (0-5); SPECIFIC GRAVITY 1.015 (1.005-1.020); TALC POWDER CRYSTALS RARE /hpf (NONE SEEN); UROBILINOGEN NORMAL (NORMAL); WHITE CELLS - URINE OCC /hpf (0-5)
== END 2017-03-24 15:17 | disposition home or self-care (01) ==
LOC: D.ER 11:08
PROVIDERS: Family Medicine
DX: M54.30 Sciatica, unspecified side (principal); J45.909 Unspecified asthma, uncomplicated; K58.9 Irritable bowel syndrome, unspecified

== ENCOUNTER 2017-03-26 11:18 | Emergency (ER) | payer MEDICAID ==
[2016-09-02 17:48] VITALS: BMI 27.1
== END 2017-03-26 12:37 | disposition home or self-care (01) ==
LOC: D.ER 11:18
DX: M54.5 Low back pain (principal); M51.26 Other intervertebral disc displacement, lumbar region

== ENCOUNTER 2017-03-27 09:35 | Emergency (ER) | payer MEDICAID ==
[2016-09-02 17:48] VITALS: BMI 27.1
== END 2017-03-27 11:15 | disposition home or self-care (01) ==
LOC: D.ER 09:35
DX: M54.5 Low back pain (principal); M51.36 Other intervertebral disc degeneration, lumbar region

== ENCOUNTER 2017-03-29 05:31 | Emergency (ER) | payer MEDICAID ==
[2016-09-02 17:48] VITALS: BMI 27.1
== END 2017-03-29 06:59 | disposition home or self-care (01) ==
LOC: D.ER 05:31
DX: M48.36 Traumatic spondylopathy, lumbar region (principal); M54.30 Sciatica, unspecified side; M54.5 Low back pain

== ENCOUNTER 2017-03-31 15:26 | Emergency (ER) | payer MEDICAID ==
[2016-09-02 17:48] VITALS: BMI 27.1
== END 2017-03-31 18:12 | disposition home or self-care (01) ==
LOC: D.ER 15:26
DX: M54.16 Radiculopathy, lumbar region (principal)

== ENCOUNTER 2017-04-09 14:16 | Emergency (ER) | payer MEDICAID ==
[2016-09-02 17:48] VITALS: BMI 27.1
== END 2017-04-09 18:13 | disposition home or self-care (01) ==
LOC: D.ER 14:16
DX: M54.5 Low back pain (principal); M54.32 Sciatica, left side; Z76.5 Malingerer [conscious simulation]

== ENCOUNTER 2017-04-19 06:23 | Emergency (ER) | payer MEDICAID ==
[2016-09-02 17:48] VITALS: BMI 27.1
== END 2017-04-19 07:32 | disposition home or self-care (01) ==
LOC: D.ER 06:23
DX: M51.36 Other intervertebral disc degeneration, lumbar region (principal)

== ENCOUNTER → 2017-05-06 08:17 | Outpatient (CLI) | payer MEDICAID ==
[2016-09-02 17:48] VITALS: BMI 27.1
== END | disposition home or self-care (01) ==
LOC: D.US 08:17
DX: N28.1 Cyst of kidney, acquired (principal)

== ENCOUNTER 2017-05-07 14:22 | Emergency (ER) | payer MEDICAID ==
[2016-09-02 17:48] VITALS: BMI 27.1
== END 2017-05-07 17:23 | disposition home or self-care (01) ==
LOC: D.ER 14:22
DX: R51 Headache (principal)

== ENCOUNTER 2017-05-30 09:33 | Emergency (ER) | payer MEDICAID ==
[2016-09-02 17:48] VITALS: BMI 27.1
[2017-05-30 11:28] LABS: BASOPHILS 0 % (0-2); EOSINOPHILS 0 % (0-7); HEMATOCRIT 43.2 % (36.0-48.0); HEMOGLOBIN 14.4 g/dL (12-16); IMMATURE GRANULOCYTES 0.3 % (0-5); LYMPHOCYTES 36.4 % (15-50); MCH 28.9 pg (26.0-34.0); MCHC 33.3 g/dL (31.0-37.0); MCV 86.6 fL (80.0-100.0); MONOCYTES 7.4 % (2-11); NEUTROPHILS 55.9 % (40-80); RBC 4.99 10x6/uL (4.00-5.40); RDW 13.2 % (11.5-14.5); WBC 3.5 10x3/uL (4.8-10.8)
[2017-05-30 11:39] LABS: PLATELET COUNT 125 10x3/uL (130-400)
[2017-05-30 11:41] LABS: ALBUMIN 3.7 g/dL (3.4-5.0); ANION GAP 10.4 mmol/L (8-16); BILIRUBIN - TOTAL 0.5 mg/dL (0.2-1.3); CALCIUM 8.8 mg/dL (8.5-10.1); CARBON DIOXIDE 31.1 mmol/L (21.0-32.0); POTASSIUM - SERUM 3.5 mmol/L (3.5-5.1); PROTEIN - SERUM 7.7 g/dL (6.4-8.2)
[2017-05-30 13:11] LABS: APPEARANCE CLOUDY (CLEAR); COLOR YELLOW (YELLOW)
[2017-05-30 13:15] LABS: AMORPHOUS SEDIMENT <1+ /lpf (NONE SEEN); BACTERIA MANY /hpf (NONE SEEN); BILIRUBIN NEGATIVE (NEGATIVE); EPITHELIAL CELLS 0-5 /hpf (0-5); GLUCOSE NEGATIVE (NEGATIVE); KETONE NEGATIVE (NEGATIVE); MUCUS <1+ /lpf (NONE SEEN); NITRITE NEGATIVE (NEGATIVE); PROTEIN TRACE mg/dL (NEGATIVE); WHITE CELLS - URINE 0-5 /hpf (0-5)
== END 2017-05-30 14:11 | disposition home or self-care (01) ==
LOC: D.ER 09:33
PROVIDERS: Emergency Medicine
DX: G43.909 Migraine, unspecified, not intractable, without status migrainosus (principal); J40 Bronchitis, not specified as acute or chronic

== ENCOUNTER 2017-06-09 15:54 | Emergency (ER) | payer MEDICAID ==
[2016-09-02 17:48] VITALS: BMI 27.1
== END 2017-06-09 18:37 | disposition home or self-care (01) ==
LOC: D.ER 15:54
DX: M54.16 Radiculopathy, lumbar region (principal)

== ENCOUNTER 2017-06-14 06:55 | Emergency (ER) | payer MEDICAID ==
[2016-09-02 17:48] VITALS: BMI 27.1
== END 2017-06-14 09:08 | disposition home or self-care (01) ==
LOC: D.ER 06:55
DX: G43.909 Migraine, unspecified, not intractable, without status migrainosus (principal)

== ENCOUNTER 2017-06-19 08:32 | Emergency (ER) | payer MEDICAID ==
[2016-09-02 17:48] VITALS: BMI 27.1
[2017-06-19 09:42] LABS: BASOPHILS 0.1 % (0-2); EOSINOPHILS 0.3 % (0-7); HEMATOCRIT 43.4 % (36.0-48.0); HEMOGLOBIN 14.4 g/dL (12-16); IMMATURE GRANULOCYTES 0.3 % (0-5); LYMPHOCYTES 15.6 % (15-50); MCH 28.7 pg (26.0-34.0); MCHC 33.2 g/dL (31.0-37.0); MCV 86.6 fL (80.0-100.0); MEAN PLATELET VOLUME 12.2 fL (7.4-10.4); MONOCYTES 3.8 % (2-11); NEUTROPHILS 79.9 % (40-80); RBC 5.01 10x6/uL (4.00-5.40); RDW 13.2 % (11.5-14.5); WBC 11.7 10x3/uL (4.8-10.8)
[2017-06-19 09:43] LABS: PLATELET COUNT 176 10x3/uL (130-400)
[2017-06-19 09:56] LABS: ALBUMIN 3.4 g/dL (3.4-5.0); ALKALINE PHOSPHATASE 92 U/L (46-116); ALT (SGPT) 21 U/L (10-68); BILIRUBIN - TOTAL 0.41 mg/dL (0.2-1.3); CALC OSMOLALITY 279 mosm/kg (275-300); CALCIUM 9.1 mg/dL (8.5-10.1); CARBON DIOXIDE 28.6 mmol/L (21.0-32.0); CHLORIDE - SERUM 103 mmol/L (98-107); CREATININE - SERUM 0.8 mg/dL (0.6-1.3); GLUCOSE 122 mg/dL (74-106); POTASSIUM - SERUM 3.9 mmol/L (3.5-5.1); PROTEIN - SERUM 7.7 g/dL (6.4-8.2); SODIUM 140 mmol/L (136-145); UREA NITROGEN 12 mg/dL (7-18); eGFR NON AFRICAN AMERICAN 77 mL/min (90-120)
== END 2017-06-19 14:26 | disposition home or self-care (01) ==
LOC: D.ER 08:32
PROVIDERS: Emergency Medicine
DX: M54.5 Low back pain (principal)

== ENCOUNTER 2017-07-02 07:33 | Emergency (ER) | payer MEDICAID ==
[2016-09-02 17:48] VITALS: BMI 27.1
== END 2017-07-02 08:56 | disposition home or self-care (01) ==
LOC: D.ER 07:33
DX: M54.5 Low back pain (principal)

== ENCOUNTER 2017-07-17 14:17 | Emergency (ER) | payer MEDICAID ==
[2016-09-02 17:48] VITALS: BMI 27.1
== END 2017-07-17 15:59 | disposition home or self-care (01) ==
LOC: D.ER 14:17
DX: M54.5 Low back pain (principal)

== ENCOUNTER 2017-08-02 09:33 | Emergency (ER) | payer MEDICAID ==
[2016-09-02 17:48] VITALS: BMI 27.1
== END 2017-08-02 12:18 | disposition home or self-care (01) ==
LOC: D.ER 09:33
DX: R51 Headache (principal)

== ENCOUNTER 2017-08-13 04:56 | Emergency (ER) | payer MEDICAID ==
[2016-09-02 17:48] VITALS: BMI 27.1
== END 2017-08-13 06:00 | disposition home or self-care (01) ==
LOC: D.ER 04:56
DX: G43.909 Migraine, unspecified, not intractable, without status migrainosus (principal)

== ENCOUNTER 2017-08-28 07:18 | Emergency (ER) | payer MEDICAID ==
[2016-09-02 17:48] VITALS: BMI 27.1
== END 2017-08-28 07:56 | disposition home or self-care (01) ==
LOC: D.ER 07:18
DX: G43.909 Migraine, unspecified, not intractable, without status migrainosus (principal)

== ENCOUNTER 2017-09-10 05:38 | Emergency (ER) | payer MEDICAID ==
[2016-09-02 17:48] VITALS: BMI 27.1
== END 2017-09-10 06:29 | disposition home or self-care (01) ==
LOC: D.ER 05:38
DX: G43.909 Migraine, unspecified, not intractable, without status migrainosus (principal)

== ENCOUNTER 2017-09-11 18:16 | Emergency (ER) | payer MEDICAID ==
[2016-09-02 17:48] VITALS: BMI 27.1
== END 2017-09-11 20:35 | disposition home or self-care (01) ==
LOC: D.ER 18:16
DX: G43.909 Migraine, unspecified, not intractable, without status migrainosus (principal)

== ENCOUNTER 2017-10-03 05:33 | Emergency (ER) | payer MEDICAID ==
[2016-09-02 17:48] VITALS: BMI 27.1
[2017-10-03 06:48] LABS: BASOPHILS 0.3 % (0-2); EOSINOPHILS 1.5 % (0-7); HEMATOCRIT 42.9 % (36.0-48.0); HEMOGLOBIN 14.3 g/dL (12-16); IMMATURE GRANULOCYTES 0.1 % (0-5); LYMPHOCYTES 34.5 % (15-50); MCH 28.8 pg (26.0-34.0); MCHC 33.3 g/dL (31.0-37.0); MCV 86.3 fL (80.0-100.0); MEAN PLATELET VOLUME 12.6 fL (7.4-10.4); MONOCYTES 5.8 % (2-11); NEUTROPHILS 57.8 % (40-80); PLATELET COUNT 171 10x3/uL (130-400); RBC 4.97 10x6/uL (4.00-5.40); RDW 13.4 % (11.5-14.5)
[2017-10-03 07:05] LABS: ALBUMIN 3.4 g/dL (3.4-5.0); ANION GAP 12.4 mmol/L (8-16); BILIRUBIN - TOTAL 0.45 mg/dL (0.2-1.3); CALCIUM 9.1 mg/dL (8.5-10.1); CARBON DIOXIDE 25.8 mmol/L (21.0-32.0); CREATININE - SERUM 0.9 mg/dL (0.6-1.3); POTASSIUM - SERUM 3.2 mmol/L (3.5-5.1); PROTEIN - SERUM 7.7 g/dL (6.4-8.2)
== END 2017-10-03 07:39 | disposition home or self-care (01) ==
LOC: D.ER 05:33
PROVIDERS: Family Medicine
DX: G43.909 Migraine, unspecified, not intractable, without status migrainosus (principal)

== ENCOUNTER 2017-10-25 08:04 | Emergency (ER) | payer MEDICAID ==
[2016-09-02 17:48] VITALS: BMI 27.1
== END 2017-10-25 09:15 | disposition home or self-care (01) ==
LOC: D.ER 08:04
DX: R51 Headache (principal); M54.2 Cervicalgia

== ENCOUNTER → 2017-11-04 08:00 | Outpatient (CLI) | payer MEDICAID ==
[2016-09-02 17:48] VITALS: BMI 27.1
== END | disposition home or self-care (01) ==
LOC: D.MAMMO 08:00
DX: Z12.31 Encounter for screening mammogram for malignant neoplasm of breast (principal)

== ENCOUNTER 2017-11-19 08:47 | Emergency (ER) | payer MEDICAID ==
[~2017-11-19] VITALS: Ht 172.7 cm; Wt 81.8 kg
[2017-11-19 09:00] VITALS: Ht 172.7 cm; Wt 81.8 kg
[2017-11-19 10:31] VITALS: BP 138/93
== END 2017-11-19 10:33 | disposition left against medical advice (07) ==
LOC: D.ER 08:47
DX: R51 Headache (principal)

== ENCOUNTER 2017-11-24 06:00 | Outpatient (CLI) | payer MEDICAID ==
[2017-11-19 09:00] VITALS: BMI 27.4
== END 2017-11-24 23:59 | disposition home or self-care (01) ==
LOC: D.MAMMO 06:00
DX: R92.8 Other abnormal and inconclusive findings on diagnostic imaging of breast (principal)

== ENCOUNTER 2017-12-10 06:35 | Emergency (ER) | payer MEDICAID ==
[~2017-12-10] VITALS: Ht 172.7 cm; Wt 83.6 kg
[2017-12-10 06:48] VITALS: BP 164/94; Ht 172.7 cm; Wt 83.6 kg
== END 2017-12-10 08:47 | disposition home or self-care (01) ==
LOC: D.ER 06:35
DX: R51 Headache (principal)

== ENCOUNTER 2017-12-29 10:05 | Emergency (ER) | payer MEDICAID ==
[~2017-12-29] VITALS: Ht 172.7 cm; Wt 76.4 kg
[2017-12-29 10:18] VITALS: Ht 172.7 cm; Wt 76.4 kg
[2017-12-29] MEDS ORDERED: OMNICEF300 MG PO (12:07)
[2017-12-29 12:15] VITALS: BP 124/87
== END 2017-12-29 12:16 | disposition home or self-care (01) ==
LOC: D.ER 10:05
DX: J01.90 Acute sinusitis, unspecified (principal); J20.9 Acute bronchitis, unspecified; G43.909 Migraine, unspecified, not intractable, without status migrainosus; R05 Cough

== ENCOUNTER 2018-02-04 06:42 | Emergency (ER) | payer MEDICAID ==
[~2018-02-04] VITALS: Ht 172.7 cm; Wt 81.8 kg
[2018-02-04 07:10] VITALS: Ht 172.7 cm; Wt 81.8 kg
[2018-02-04 08:23] VITALS: BP 145/75
== END 2018-02-04 08:24 | disposition home or self-care (01) ==
LOC: D.ER 06:42
DX: G43.909 Migraine, unspecified, not intractable, without status migrainosus (principal); R11.0 Nausea

== ENCOUNTER 2018-04-02 09:50 | Emergency (ER) | payer MEDICAID ==
[~2018-04-02] VITALS: Ht 172.7 cm; Wt 81.8 kg
[2018-04-02 10:20] VITALS: Ht 172.7 cm; Wt 81.8 kg
[2018-04-02 13:18] VITALS: BP 169/95
== END 2018-04-02 13:10 | disposition home or self-care (01) ==
LOC: D.ER 09:50
DX: G43.909 Migraine, unspecified, not intractable, without status migrainosus (principal)

== ENCOUNTER 2018-04-28 14:24 | Emergency (ER) | payer MEDICAID ==
[~2018-04-28] VITALS: Ht 172.7 cm; Wt 83.6 kg
[2018-04-28 14:34] VITALS: Ht 172.7 cm; Wt 83.6 kg
[2018-04-28 17:33] VITALS: BP 179/89
== END 2018-04-28 16:56 | disposition home or self-care (01) ==
LOC: D.ER 14:24
DX: G43.909 Migraine, unspecified, not intractable, without status migrainosus (principal)

== ENCOUNTER 2018-05-24 07:20 | Emergency (ER) | payer MEDICAID ==
[~2018-05-24] VITALS: Ht 172.7 cm; Wt 81.8 kg
[2018-05-24 07:35] VITALS: Ht 172.7 cm; Wt 81.8 kg
[2018-05-24 09:02] VITALS: BP 148/89
== END 2018-05-24 09:04 | disposition home or self-care (01) ==
LOC: D.ER 07:20
DX: G43.909 Migraine, unspecified, not intractable, without status migrainosus (principal); M54.5 Low back pain; F11.10 Opioid abuse, uncomplicated

== ENCOUNTER → 2018-06-26 08:00 | Outpatient (CLI) | payer MEDICAID ==
[2018-05-24 07:35] VITALS: BMI 27.4
== END | disposition home or self-care (01) ==
LOC: D.MAMMO 08:00
DX: R92.8 Other abnormal and inconclusive findings on diagnostic imaging of breast (principal)

== ENCOUNTER → 2018-10-29 14:02 | Outpatient (CLI) | payer MEDICAID ==
[2018-05-24 07:35] VITALS: BMI 27.4
== END | disposition home or self-care (01) ==
LOC: D.CT 14:02
PROVIDERS: ATTEND Emergency Medicine
DX: G43.009 Migraine without aura, not intractable, without status migrainosus (principal)

== ENCOUNTER → 2018-12-17 09:00 | Outpatient (CLI) | payer MEDICAID ==
[2018-05-24 07:35] VITALS: BMI 27.4
== END | disposition home or self-care (01) ==
LOC: D.MAMMO 09:00
PROVIDERS: ATTEND Emergency Medicine
DX: Z12.31 Encounter for screening mammogram for malignant neoplasm of breast (principal)

== ENCOUNTER 2019-09-29 19:20 | Inpatient (IN) | payer MEDICARE ==
[~2019-09-29] VITALS: Ht 172.7 cm; Wt 61.8 kg
[~2019-09-29 19:20] MED LIST changes: +CALAN SR240 MG PO; +CARAFATE1 G PO; +FLOVENT HFA 22012 GM INH; +LIPITOR40 MG PO; +PREDNISONE10 MG PO; +UNK CHOLESTEROL MED
[2019-09-29] MEDS ORDERED: DILAUDID2 MG PO (19:36)
[2019-09-29 19:56] VITALS: BP 152/77
[2019-09-29 20:01] LABS: BASOPHILS 0.1 % (0-2); EOSINOPHILS 1.4 % (0-7); HEMATOCRIT 41.4 % (36.0-48.0); HEMOGLOBIN 13.4 g/dL (12-16); IMMATURE GRANULOCYTES 0.1 % (0-5); LYMPHOCYTES 27.5 % (15-50); MCH 27.7 pg (26.0-34.0); MCHC 32.4 g/dL (31.0-37.0); MCV 85.7 fL (80.0-100.0); MEAN PLATELET VOLUME 11.2 fL (7.4-10.4); MONOCYTES 4.9 % (2-11); PLATELET COUNT 172 10x3/uL (130-400); RBC 4.83 10x6/uL (4.00-5.40); RDW 12.8 % (11.5-14.5); WBC 9.1 10x3/uL (4.8-10.8)
[2019-09-29 20:15] LABS: APTT 31.1 SECONDS (22.8-39.4); INR 1.04 (0.85-1.17); PROTIME 13.5 SECONDS (11.6-15.0)
[2019-09-29 20:17] LABS: CALC OSMOLALITY 277 mosm/kg (275-300); CALCIUM 8.8 mg/dL (8.5-10.1); CARBON DIOXIDE 27.8 mmol/L (21.0-32.0); CHLORIDE - SERUM 103 mmol/L (98-107); CREATININE - SERUM 0.8 mg/dL (0.6-1.3); GLUCOSE 109 mg/dL (74-106); SODIUM 139 mmol/L (136-145); UREA NITROGEN 9 mg/dL (7-18); eGFR NON AFRICAN AMERICAN 76 mL/min (90-120)
[2019-09-29 20:33] LABS: ALBUMIN 3.4 g/dL (3.4-5.0); ALKALINE PHOSPHATASE 130 U/L (30-120); ALT (SGPT) 33 U/L (10-68); BILIRUBIN - TOTAL 0.47 mg/dL (0.2-1.3); CKMB 0.2 U/L (0.0-3.6); CREATINE KINASE 63 UL (21-215); MAGNESIUM - SERUM 1.9 mg/dL (1.8-2.4); PROTEIN - SERUM 7.7 g/dL (6.4-8.2)
[2019-09-29 20:42] LABS: TROPONIN-I < 0.017 ng/mL (0.000-0.060)
--- NOTE | 2019-09-29 23:11 | NUR ---
RECEIVED PT FROM ER VIA WHEELCHAIR ACCOMPLINED BY HOSPITAL [facility]. PT IS AWAKE AND ORIENTED x4. NO SIGNS OF DISTRESS NOTED. PT CO SHORTNESS OF BREATH 2LNC APPLIED. ASSIST PT TO RESTROOM AND BACK TO BED. PT HAS STEADY GAIT. PT ENCOUARGED TO CALL FOR HELP WHEN GETTING IN AND OUT OF BED. CALL LIGHT WITH IN REACH. WILL CONTINUE TO MONITOR
[2019-09-30 04:00] VITALS: BP 102/49
--- NOTE | 2019-09-30 05:49 | NUR ---
ASSIST PT TO RESTROOM. PT CO PAIN PRN PAIN MEDICATION GIVEN WILL CONTINUE TO MONITOR
[2019-09-30 05:55] VITALS: BMI 28.3
[2019-09-30 06:58] LABS: CALC OSMOLALITY 276 mosm/kg (275-300); CALCIUM 8.3 mg/dL (8.5-10.1); CARBON DIOXIDE 25.8 mmol/L (21.0-32.0); CHLORIDE - SERUM 104 mmol/L (98-107); CKMB 0.3 U/L (0.0-3.6); CREATINE KINASE 80 UL (21-215); CREATININE - SERUM 0.8 mg/dL (0.6-1.3); GLUCOSE 102 mg/dL (74-106); PHOSPHOROUS 4.1 mg/dL (2.5-4.9); POTASSIUM - SERUM 4.6 mmol/L (3.5-5.1); PRO BNP 48 pg/mL (0-125); SODIUM 139 mmol/L (136-145); TROPONIN-I < 0.017 ng/mL (0.000-0.060); UREA NITROGEN 9 mg/dL (7-18); eGFR NON AFRICAN AMERICAN 76 mL/min (90-120)
--- NOTE | 2019-09-30 07:25 | NUR ---
ASSESSMENT DONE. DERNIES NEEDS
[2019-09-30 08:21] LABS: BASOPHILS 0.1 % (0-2); EOSINOPHILS 1.6 % (0-7); HEMOGLOBIN 12.8 g/dL (12-16); IMMATURE GRANULOCYTES 0.4 % (0-5); MCH 28.2 pg (26.0-34.0); MCHC 32.8 g/dL (31.0-37.0); MCV 85.9 fL (80.0-100.0); MEAN PLATELET VOLUME 11.8 fL (7.4-10.4); MONOCYTES 6.6 % (2-11); NEUTROPHILS 65.3 % (40-80); PLATELET COUNT 184 10x3/uL (130-400); RBC 4.54 10x6/uL (4.00-5.40); WBC 8.1 10x3/uL (4.8-10.8)
[2019-09-30 08:56] VITALS: BP 130/65
[2019-09-30 11:48] LABS: CKMB 0.3 U/L (0.0-3.6); CREATINE KINASE 64 UL (21-215)
[2019-09-30 11:49] LABS: TROPONIN-I < 0.017 ng/mL (0.000-0.060)
[2019-09-30 13:50] VITALS: BP 117/53
--- NOTE | 2019-09-30 14:53 | NUR ---
I have reviewed this patient and I concur with the Shift Assessment completed by the Licensed Practical Nurse today this shift.
[2019-09-30 17:43] LABS: CKMB 0.3 U/L (0.0-3.6); CREATINE KINASE 79 UL (21-215); TROPONIN-I < 0.017 ng/mL (0.000-0.060)
[2019-09-30 19:23] VITALS: BP 110/47
--- NOTE | 2019-09-30 19:28 | NUR ---
REPORT RECEIVED, WILL CONTINUE POC. PATIENT IS AAOX4, LYING IN SEMI-FOWLERS POSITION. NO S/S OF DISTRESS OBSERVED, RR EVEN AND UNLABORED ON ROOM AIR. PATIENT REQUESTS PAIN AND NAUSEA MEDICATION. PATIENT DENIES FURTHER NEEDS AT THIS TIME. CL IN REACH, BED LOCKED AND LOWERED. WILL CTM.
[2019-09-30 20:00] VITALS: BP 127/68
[2019-10-01 04:00] VITALS: BP 167/85
--- NOTE | 2019-10-01 04:20 | NUR ---
PATIENT TEMP 101.5 ORAL, ASKED PATIENT WHAT SHE NORMALLY TAKES FOR A FEVER AT HOME SINCE ACETOMINOPHEN IS ON HER ALLERGY LIST, SHE STATES SHE TAKES TYLENOL AT HOME. PAGED SUNSHINE JAIN APN. ORDERS RECEIVED. CULTURAL CENTRE MANAGER ALSO ASSISTED PT TO BATHROOM AND BACK TO BED.
--- NOTE | 2019-10-01 05:27 | NUR ---
PATIENT TEMP DOWN TO 99.5. PATIENT CALLED, UPDATE GIVEN.
[2019-10-01 06:44] LABS: ANION GAP 10.5 mmol/L (8-16); BASOPHILS 0.1 % (0-2); CALCIUM 8.5 mg/dL (8.5-10.1); CARBON DIOXIDE 28.6 mmol/L (21.0-32.0); CREATININE - SERUM 0.9 mg/dL (0.6-1.3); EOSINOPHILS 2.2 % (0-7); HEMATOCRIT 37.8 % (36.0-48.0); HEMOGLOBIN 11.8 g/dL (12-16); IMMATURE GRANULOCYTES 0.3 % (0-5); LYMPHOCYTES 33.2 % (15-50); MAGNESIUM - SERUM 1.9 mg/dL (1.8-2.4); MCH 27.7 pg (26.0-34.0); MCHC 31.2 g/dL (31.0-37.0); MEAN PLATELET VOLUME 12.3 fL (7.4-10.4); MONOCYTES 5.5 % (2-11); NEUTROPHILS 58.7 % (40-80); PHOSPHOROUS 3.2 mg/dL (2.5-4.9); PLATELET COUNT 213 10x3/uL (130-400); POTASSIUM - SERUM 4.1 mmol/L (3.5-5.1); RBC 4.26 10x6/uL (4.00-5.40); RDW 13.3 % (11.5-14.5); WBC 6.9 10x3/uL (4.8-10.8)
[2019-10-01 07:01] LABS: MCV 88.7 fL (80.0-100.0)
--- NOTE | 2019-10-01 09:51 | NUR ---
ABG PO2 49. R.T. PLACED PT ON 3L OF O2 VIA NC.
--- NOTE | 2019-10-01 10:13 | NUR ---
PT HAS VOMITED X2. ONCE IN THE COMMODE AND THIS NURSE DID NOT SEE IT AND ONCE AT THIS TIME 175ML. PT HAS BEEN GETTING IV [id number] AND IT DOES NOT SEEM TO BE WORKING. DR. LINDQUIST ALSO ASKS IF PT CAN GET A GI CONSULT BUT TO ASK PRIMARY IF WE CAN GET CONSULT HE STATES HE IS WORRIED ABOUT GASTRITIS. I VERBALIZED UNDERSTANDING. MESSAGED RON SOW ABOUT PT VOMITING X2 AND ZOFRAN NOT WORKING AND SHE STATES GI IS OUT TILL FRIDAY AND GAVE NO FURTHER ORDERS.
[2019-10-01 10:17] VITALS: BP 132/70
--- NOTE | 2019-10-01 11:05 | NUR ---
MIKE UPPER ARM 20G IV INSERTED BY BELKYS VASCULAR ACCESS NURSE.
--- NOTE | 2019-10-01 12:09 | NUR ---
PT VOMITED ANOTHER 100ML AND MESSAGED RON SOW AND SHE GAVE NO FURTHER ORDERS.
--- NOTE | 2019-10-01 13:04 | NUR ---
RON SOW STATES TO MAKE PT NPO AND TO ORDER AN ABDOMINAL XR. I VERBALIZED UNDERSTANDING.
--- NOTE | 2019-10-01 13:26 | NUR ---
COVID TESTED. PT TRANSFERED TO ROOM 2128.
[2019-10-01 14:03] LABS: BILIRUBIN NEGATIVE (NEGATIVE); GLUCOSE NEGATIVE (NEGATIVE); KETONE NEGATIVE (NEGATIVE); NITRITE NEGATIVE (NEGATIVE); SPECIFIC GRAVITY 1.025 (1.005-1.020)
[2019-10-01 14:04] LABS: AMORPHOUS SEDIMENT >1+ /lpf (NONE SEEN); BACTERIA FEW /hpf (NEGATIVE); EPITHELIAL CELLS 0-5 /hpf (0-5); RED CELLS - URINE 0-5 /hpf (0-5); WHITE CELLS - URINE RARE /hpf (NEGATIVE)
--- NOTE | 2019-10-01 19:30 | NUR ---
PT IN BED, AAO X 3, RESP EVEN AND UNLABORED, NO DISTRESS NOTED, CL IN REACH, SR UP X 2.
[2019-10-01 21:21] VITALS: BP 149/66
[2019-10-02 00:01] VITALS: BP 141/66
--- NOTE | 2019-10-02 03:32 | NUR ---
I have reviewed this patient and I concur with the Shift Assessment completed by the Licensed Practical Nurse today this shift.
[2019-10-02 04:00] VITALS: BP 125/62
[2019-10-02 05:03] LABS: HEMATOCRIT 38.2 % (36.0-48.0); HEMOGLOBIN 12.5 g/dL (12-16); LYMPHOCYTES 7.9 % (15-50); MCH 28.2 pg (26.0-34.0); MCHC 32.7 g/dL (31.0-37.0); MEAN PLATELET VOLUME 11.9 fL (7.4-10.4); NEUTROPHILS 90.4 % (40-80); PLATELET COUNT 178 10x3/uL (130-400); RBC 4.43 10x6/uL (4.00-5.40); RDW 12.4 % (11.5-14.5)
[2019-10-02 05:04] LABS: MCV 86.2 fL (80.0-100.0); WBC 11.6 10x3/uL (4.8-10.8)
[2019-10-02 05:17] LABS: CALC OSMOLALITY 275 mosm/kg (275-300); CALCIUM 9.2 mg/dL (8.5-10.1); CHLORIDE - SERUM 103 mmol/L (98-107); CREATININE - SERUM 0.8 mg/dL (0.6-1.3); GLUCOSE 129 mg/dL (74-106); PHOSPHOROUS 3.3 mg/dL (2.5-4.9); POTASSIUM - SERUM 4.3 mmol/L (3.5-5.1); SODIUM 137 mmol/L (136-145); UREA NITROGEN 12 mg/dL (7-18); eGFR NON AFRICAN AMERICAN 76 mL/min (90-120)
[2019-10-02 08:25] VITALS: BP 133/65
--- NOTE | 2019-10-02 10:00 | NUR ---
DR. LINDQUIST ROUNDED ON PT AND SPOKE WITH PT'S OVER THE PHONE.
[2019-10-02 12:46] VITALS: BP 143/73
--- NOTE | 2019-10-02 16:17 | NUR ---
PT HAS HAD NO VOMITING TODAY. PT SITTING UP IN BED. WATCHING TV. PT STATES SHE HAS NO FURTHER NEEDS A THIS TIME. BED LOW. CL IN REACH.
[2019-10-02 16:38] VITALS: BP 150/72
--- NOTE | 2019-10-02 17:24 | NUR ---
I have reviewed this patient and I concur with the Shift Assessment completed by the Licensed Practical Nurse today this shift.
--- NOTE | 2019-10-02 19:30 | NUR ---
RECEIVED REPORT, WILL ASSUME CARE OF PT, DENIES ANY NEEDS AT THIS TIME, BED IS LOW, SRX2, CALL LIGHT IN REACH, WILL CONTINUE PLAN OF CARE
[2019-10-02 20:00] VITALS: BP 160/80
[2019-10-03] VITALS: BP 140/66
[2019-10-03 04:00] VITALS: BP 131/57
[2019-10-03 05:33] LABS: HEMATOCRIT 36.8 % (36.0-48.0); HEMOGLOBIN 11.9 g/dL (12-16); LYMPHOCYTES 5.2 % (15-50); MCH 28.1 pg (26.0-34.0); MCHC 32.3 g/dL (31.0-37.0); MEAN PLATELET VOLUME 12.1 fL (7.4-10.4); NEUTROPHILS 89.6 % (40-80); PLATELET COUNT 185 10x3/uL (130-400); RBC 4.23 10x6/uL (4.00-5.40); RDW 12.4 % (11.5-14.5)
[2019-10-03 05:39] LABS: WBC 15.3 10x3/uL (4.8-10.8)
[2019-10-03 05:53] LABS: ANION GAP 11.2 mmol/L (8-16); CALCIUM 9.1 mg/dL (8.5-10.1); CARBON DIOXIDE 28.1 mmol/L (21.0-32.0); MAGNESIUM - SERUM 2.3 mg/dL (1.8-2.4); PHOSPHOROUS 2.9 mg/dL (2.5-4.9); POTASSIUM - SERUM 4.3 mmol/L (3.5-5.1)
[2019-10-03 08:26] VITALS: BP 118/64
--- NOTE | 2019-10-03 09:50 | NUR ---
OPENED MEDICATIONS AND PLACED INTO MED CUP HANDED TO PATIENT TO TAKE AND THE PATIENT REPORTED THAT SHE IS NOT TAKING THEM AT THIS MOMENT AND REFUSED TO HAND THE PILL CUP BACK TO ME. PATIENT WILL TAKE THEM WHENEVER HER MEETING IS COMPLET3
[2019-10-03 12:08] LABS: PROCALCITONIN 0.05 ng/mL (0.00-0.08)
--- NOTE | 2019-10-03 12:25 | NUR ---
Rehab Prescreening Consult recieved and the chart has been reviewed. PT has been on hold since the due to COVID pending. If COVID is negative a new order for PT will be needed. Rehab will follow. Yeni Gerard RN Clinical Liaison, Rehab
[2019-10-03 12:49] VITALS: BP 177/86
[2019-10-03 15:59] VITALS: BP 131/65
--- NOTE | 2019-10-03 19:40 | NUR ---
RECEIVED REPORT, WILL ASSUME CARE OF PT, PLAYING ON PHONE, DENIES ANY NEEDS, BED IS LOW, SRX2, CALL LIGHT IN REACH, WILL CONTINUE PLAN OF CARE
[2019-10-03 20:00] VITALS: BP 170/75
[2019-10-04] VITALS: BP 166/95
--- NOTE | 2019-10-04 03:45 | NUR ---
I have reviewed this patient and I concur with the Shift Assessment completed by the Licensed Practical Nurse today this shift.
[2019-10-04 04:00] VITALS: BP 160/73
[2019-10-04 05:52] LABS: ANION GAP 8.6 mmol/L (8-16); CALCIUM 8.9 mg/dL (8.5-10.1); CARBON DIOXIDE 30.5 mmol/L (21.0-32.0); CREATININE - SERUM 0.9 mg/dL (0.6-1.3); MAGNESIUM - SERUM 2.3 mg/dL (1.8-2.4); PHOSPHOROUS 2.7 mg/dL (2.5-4.9); POTASSIUM - SERUM 4.1 mmol/L (3.5-5.1)
[2019-10-04 07:55] LABS: HEMATOCRIT 38.2 % (36.0-48.0); HEMOGLOBIN 12.1 g/dL (12-16); MCH 27.9 pg (26.0-34.0); MCHC 31.7 g/dL (31.0-37.0); MCV 88.2 fL (80.0-100.0); MEAN PLATELET VOLUME 9.7 fL (7.4-10.4); PLATELET COUNT 394 10x3/uL (130-400); RBC 4.33 10x6/uL (4.00-5.40); RDW 12.5 % (11.5-14.5); WBC 22.7 10x3/uL (4.8-10.8)
[2019-10-04 08:35] VITALS: BP 148/72
[2019-10-04] MEDS ORDERED: DULCOLAX STOOL100 MG PO (08:40)
[2019-10-04 10:34] VITALS: Ht 172.7 cm; Wt 61.8 kg
[2019-10-04 11:48] LABS: ANISOCYTOSIS OCC; CRENATED CELLS 1+; EOSINOPHILS 3 % (0-7); LYMPHOCYTES 15 % (15-50); MONOCYTES 7 % (2-11); NEUTROPHILS 75 % (40-80); PLATELET ESTIMATE INCREASED; PLATELET MORPHOLOGY PLT CLUMPS PRESENT; SMUDGE CELLS OCC
[2019-10-04 13:15] VITALS: BP 127/65
--- NOTE | 2019-10-04 14:28 | MORECARE ---
CASE MANAGEMENT DISCHARGE SUMMARY PATIENT: FERNANDO ELAM ALEX UNIT: [id number] ADM DATE: 09/29/19 AGE: 64 : 53 SEX: F ROOM/BED: D.2107 AUTHOR: VERONICA LATIF PHYSICIAN: REFERRING PHYSICIAN: PATI LOREDO MD DATE OF SERVICE: 10/04/19 Discharge Plan Patient Name: FERNANDO ELAM Facility: [facility]:[place] : 1955 Planned Disposition: Home Anticipated Discharge Date: Discharge Date: Expected LOS: Initial Reviewer: [email or web address] Initial Review Date: 10/04/2019 Generated: 10/04/19 3:28 pm DCPIA - Discharge Planning Initial Assessment Updated by [email or web address]: Soo Cruz on 10/04/19 2:28 pm * Is the patient Alert and Oriented? Yes * How many steps to enter\exit or inside your home? 0/0 * PCP Dr. Gayathri Jaimes * Pharmacy [facility] on [place] * Preadmission Environment Home with Family * ADLs Independent * Equipment Nebulizer Walker * List name and contact numbers for known caregivers / representatives who currently or will assist patient after discharge: Mau Elam - spouse - [phone] Bertha Chowdary - daughter - [phone] Ester Zamora - friend - [phone] * Verbal permission to speak to the caregivers and representatives has been obtained from the patient. Yes * Community resources currently utilized None * Additional services required to return to the preadmission environment? No * Can the patient safely return to the preadmission environment? Yes * Has this patient been hospitalized within the prior 30 days at any hospital? No Coverage Notice Reviewer: [email or web address] - Soo Cruz Notice Issued Date-Time: 10/04/2019 14:23 Notice Type: IM Discharge Notice Notice Delivered To: Patient Relationship to Patient: Self Paper Sorter Name: Delivery Method: HAND - Hand Delivered [place] Days: Prior Verbal Notification: Recipient Understood Notice: Yes Recipient Signature: Yes Med Rec Note Co-signed by Attending: Coverage Notice Comment: IMM explained, signed, given, copy placed in MR Patient Name: FERNANDO ELAM Page [phone] at 1428 All edits/amendments must be made on the electronic document DICTATION DATE: 10/04/191427 DROP WIRE BUILDER: NATHANIEL 10/04/191427 RPT#: [id number] DC DATE: STATUS: ADM IN [facility] [address] [place] [address] END OF REPORT
--- NOTE | 2019-10-04 14:35 | MORECARE ---
CASE MANAGEMENT DISCHARGE SUMMARY PATIENT: FERNANDO ELAM ALEX UNIT: [id number] ADM DATE: 09/29/19 AGE: 64 : 53 SEX: F ROOM/BED: D.7673 AUTHOR: BHAVYA,DOC PHYSICIAN: REFERRING PHYSICIAN: PATI LOREDO MD DATE OF SERVICE: 10/04/19 Discharge Plan Patient Name: FERNANDO ELAM Facility: [facility]:[place] : 1955 Planned Disposition: Home Anticipated Discharge Date: Discharge Date: Expected LOS: Initial Reviewer: [id number] Initial Review Date: 10/04/2019 Generated: 10/04/19 3:34 pm Comments DCP- Discharge Planning Updated by [email or web address]: Soo Cruz on 10/04/19 1:[address] Patient Name: FERNANDO ELAM Admission Status: ER Accout number: [id number] Admission Date: 09-29-2019 : 1955 Admission Diagnosis:UNSPECIFIED ASTHMA WITH (ACUTE) EXACERBATION Attending: PATI LOREDO Current LOS: 5 Anticipated DC Date: Planned Disposition: Home Primary Insurance: MEDICARE A & B DC Plan - Home with spouse. Spouse or friend (Ezla) will transport home. Discharge Planning Comments: CM met with patient to discuss discharge planning/needs. She states she lives independently with her spouse. States she has a walker and nebulizer from [employer]. I discussed availability of inpatient rehab, SNF, home health and additional DME needs. She states she plans on returning home with her spouse and feels this is a safe discharge. She denies needs. No needs identified. CM will continue to follow and assist with discharge planning/needs. Production Posting Clerk: Soo Cruz DCPIA - Discharge Planning Initial Assessment Updated by [email or web address]: Soo Cruz on 10/04/19 2:28 pm * Is the patient Alert and Oriented? Yes * How many steps to enter\exit or inside your home? 0/0 * PCP Dr. Gayathri Jaimes * Pharmacy [facility] on [address] * Preadmission Environment Home with Family * ADLs Independent * Equipment Nebulizer Walker * List name and contact numbers for known caregivers / representatives who currently or will assist patient after discharge: Mau Elam - spouse - [phone] Bertha Chowdary - daughter - [phone] Ester Zamora - friend - [phone] * Verbal permission to speak to the caregivers and representatives has been obtained from the patient. Yes * Community resources currently utilized None * Additional services required to return to the preadmission environment? No * Can the patient safely return to the preadmission environment? Yes * Has this patient been hospitalized within the prior 30 days at any hospital? No Coverage Notice Reviewer: [id number] Wanda Cruz Notice Issued Date-Time: 10/04/2019 14:23 Notice Type: IM Discharge Notice Notice Delivered To: Patient Relationship to Patient: Self Tube Carrier Name: Delivery Method: HAND - Hand Delivered Smitha Days: Prior Verbal Notification: Recipient Understood Notice: Yes Recipient Signature: Yes Med Rec Note Co-signed by Attending: Coverage Notice Comment: IMM explained, signed, given, copy placed in MR Last DP export: 10/04/19 1:28 p Patient Name: FERNANDO ELAM Page [id number] at 1435 All edits/amendments must be made on the electronic document DICTATION DATE: 10/04/19 143 UPHOLSTERY SEWER: NATHANIEL 10/04/19 1434 RPT#: [id number] DC DATE: STATUS: ADM IN [facility] [address] [place] [address] END OF REPORT
[2019-10-04] MEDS ORDERED: DULCOLAX5 MG PO (15:41)
[2019-10-04 18:23] VITALS: BP 139/73
--- NOTE | 2019-10-04 18:35 | NUR ---
RIGHT MIDDLE FINGER IV OUT WITH CATH INTACT. PT HAS RIGHT UPPER ARM 20G IV INFUSING NS AT [facility].
[2019-10-04 20:54] VITALS: BP 146/74
[2019-10-05 00:30] VITALS: BP 156/75
[2019-10-05 06:28] VITALS: BP 152/71
--- NOTE | 2019-10-05 07:55 | NUR ---
PT A/O X4 RETURNED TO FLOOR AT THIS TIME. PT COMPLAINING OF PAIN 8/ GENERALIZED. BED LOW CALL LIGHT WITHIN REACH. WILL CONTINUIE TO MONITOR.
[2019-10-05 08:28] LABS: HEMATOCRIT 39.3 % (36.0-48.0); HEMOGLOBIN 12.6 g/dL (12-16); LYMPHOCYTES 6.8 % (15-50); MCH 27.6 pg (26.0-34.0); MCHC 32.1 g/dL (31.0-37.0); NEUTROPHILS 86.6 % (40-80); RBC 4.56 10x6/uL (4.00-5.40); RDW 12.7 % (11.5-14.5)
[2019-10-05 08:32] LABS: MCV 86.2 fL (80.0-100.0); PLATELET COUNT 167 10x3/uL (130-400); WBC 11.6 10x3/uL (4.8-10.8)
[2019-10-05 09:08] LABS: ANION GAP 11.9 mmol/L (8-16); CARBON DIOXIDE 27.8 mmol/L (21.0-32.0); MAGNESIUM - SERUM 2.4 mg/dL (1.8-2.4); PHOSPHOROUS 2.1 mg/dL (2.5-4.9); POTASSIUM - SERUM 3.7 mmol/L (3.5-5.1)
[2019-10-05 09:14] VITALS: BP 141/71
--- NOTE | 2019-10-05 09:47 | NUR ---
Rehab Note- PT Eval completed, recommend home with HH. The patient is too functional for inpatient acute rehab at this time. Thank you for this referral! Leona Solis RN Clinical Liaison, [facility]
--- NOTE | 2019-10-05 10:45 | NUR ---
RECEIVED A CALL FROM PT SPOUSE BEING UPSET ON PHONE STATING PT HAD SENT HIM PHOTO'S OF HER IV SITE WHERE IT HAD INFILTRATED AND WANTED TO KNOW WHY WE DID NOT DO SOMETHING ABOUT IT. I ADVISED THAT SITE WAS PATENT PER CHAPARRO/DEENA AT [facility] AND LATER WHEN SHE PROVIDED MEDICATION IT WAS PATENT. CHAPARRO ADVISED IT INFILTRATED APPROXIMATELY 45 MINUTES PRIOR TO PHONE CALL AND IV WAS REMOVED WITH TIP INTACT, WARM COMPRESS APPLIED TO ARM AND ARM ELEVATED.
--- NOTE | 2019-10-05 11:53 | NUR ---
ATTEMPTED X 2 FOR IV PLACEMENT, UNSUCCESSFUL TO PLACE IV.
--- NOTE | 2019-10-05 15:20 | NUR ---
RECEIVED A PHONE CALL FROM PT SPOUSE REQUESTING TEST RESULTS FROM TEST EARLY THIS MORNING BUT DID NOT KNOW WHAT IT WAS CALLED. PERMISSION PROVIDED FROM PT TO SPEAK WITH SPOUSE. ADVISE SPOUSE OF TEST RESULT AND THAT DR. DUNCAN WAS ON FLOOR AT THIS TIME ROUNDING AND WOULD PUT A PHYSICIAN NOTE IN CHART WITH ANY NEW ORDERS.
--- NOTE | 2019-10-05 15:33 | NUR ---
PHONE AT NURSE STATION TO JACOB. I ANSWERED IT AND IT IS THE PATIENT WANTING TO KNOW "WHY YOU CALLED ME WITH HER TEST RESULTS". I ASKED HIM WHO CALLED HIM, MALE OR FEMALE AND HE STATES THAT HE HAD NO IDEA. DR DUNCAN IS ON THE FLOOR IS WHY I ASKED THE PATIENT OF THE VOICE. I ASKED IF I COULD PLACE HIM ON HOLD SO HE COULD SPEAK TO MADELINE, APPLICATION ENGINEER. HE REPLIED THAT HE ALREADY TALKED TO MADELINE ABOUT THE TEST RESULTS FROM THIS AM. I ASKED HIM WHAT I COULD DO TO ASSIST HIM. AGAIN, HE REPLIED, "WHY DID YOU CALL ME WITH HER TEST RESULTS, I JUST TOLD YOU THAT". AGAIN, I TOLD HIM THAT I DID NOT CALL HIM. HE FINALLY SAID, "JUST FORGET IT" AND HUNG UP. I RELAYED ALL THIS INFORMATION TO MADELINE, APPLICATION ENGINEER AND SHE STATES THAT HE CALLED AND SHE GAVE HIM THE TEST RESULTS WHEN HE ASKED FOR THEM.
--- NOTE | 2019-10-05 16:14 | NUR ---
PT SPOUSE CALLED WANTING TO SPEAK TO HEAD NURSE. I TOOK CALL. HE WANTED TO KNOW IF CENTRAL LINE WAS PUT IN PATIENT YET BECAUSE PT IS NOT ANSERING HIS CALLS AND WHY DIDN'T SOMEONE CALL TO LET HIM KNOW. I ADVISED PT HAD MIDLINE PLACED WITHIN LAST 10 MINUTES, ANTIBIOTICS ARE RUNNING AND PATIENT IS IN NO DISTRESS ACCORDING TO CHAPARRO/DEENA.
[2019-10-05 16:52] VITALS: BP 132/76
--- NOTE | 2019-10-05 17:11 | NUR ---
I have reviewed this patient and I concur with the Shift Assessment completed by the Licensed Practical Nurse today this shift.
[2019-10-05 20:00] VITALS: BP 129/67
[2019-10-06] VITALS: BP 156/66
[2019-10-06 04:00] VITALS: BP 163/81
[2019-10-06 09:35] VITALS: BP 138/68
[2019-10-06] MEDS ORDERED: HYDROCODON-ACE1 EAC7 PO (12:49)
--- NOTE | 2019-10-06 12:55 | NUR ---
ASK ABOUT ALLERGIE TO ACETAMINOPHEN, PT SAYS SHE IS NOT ALLERGIC TO THAT. THAT CAME FROM HER BEING ALLERGIC TO TYLENOL#3, IT IS THE CODINE NOT TYLENOL. AND SHE HAS TAKEN NORCO WITHOUT PROBLEMS.
[2019-10-06 12:58] LABS: BASOPHILS 0 % (0-2); EOSINOPHILS 0 % (0-7); HEMATOCRIT 39.1 % (36.0-48.0); HEMOGLOBIN 12.6 g/dL (12-16); IMMATURE GRANULOCYTES 0.6 % (0-5); LYMPHOCYTES 5.2 % (15-50); MCH 28.1 pg (26.0-34.0); MCHC 32.2 g/dL (31.0-37.0); MCV 87.1 fL (80.0-100.0); MEAN PLATELET VOLUME 12.2 fL (7.4-10.4); MONOCYTES 7.3 % (2-11); NEUTROPHILS 86.9 % (40-80); RBC 4.49 10x6/uL (4.00-5.40); RDW 12.9 % (11.5-14.5)
[2019-10-06 13:05] LABS: PLATELET COUNT 131 10x3/uL (130-400); WBC 14.9 10x3/uL (4.8-10.8)
[2019-10-06 13:17] LABS: ANION GAP 9.6 mmol/L (8-16); CALCIUM 8.9 mg/dL (8.5-10.1); CARBON DIOXIDE 24.8 mmol/L (21.0-32.0); CREATININE - SERUM 1.1 mg/dL (0.6-1.3); POTASSIUM - SERUM 3.4 mmol/L (3.5-5.1)
[2019-10-06 13:47] VITALS: BP 142/76
--- NOTE | 2019-10-06 14:38 | NUR ---
I have reviewed this patient and I concur with the Shift Assessment completed by the Licensed Practical Nurse today this shift.
--- NOTE | 2019-10-06 15:41 | NUR ---
INDEPENDENT WITH ADLS, AMBULATES. NO ISSUE WITH SKIN INTEGRITY. WOUND CARE CONTINUES TO MONITOR.
[2019-10-06 18:26] VITALS: BP 155/84
--- NOTE | 2019-10-06 19:41 | NUR ---
PT AWAKE ALERT AND ORIENTED X4. NO SIGNS OF DISTRESS NOTED. RESPIRATIONS EVEN AND UNLABORED. PT GETTING UP TO RESTROOM. PT EDUCATED ON HOW TO PULL CALL LIGGHT IN RESTROOM IF NEEDED. CALL LIGHT AND OTHER PERSONAL ITEMS WITH IN REACH. WILL CONTINUE TO MONITOR.
[2019-10-06 20:00] VITALS: BP 153/82
--- NOTE | 2019-10-06 23:43 | NUR ---
PT LYING IN BED RESTING WITH EYES CLOSED. EASILY AWAKEN WITH VOICE STIMULATION. PT C/O PAIN. PRN PAIN MEDICATION OFFERED. PT REFUSES. PT STATES THAT NORCO MAKES HER SICK. KENDALL MCWILLIAMS IS AWARE. NO NEW ORDERS. PT ENCOUARGED TO LET ME KNOW IF SHE DECIDES THAT SHE WANTS A PAIN PILL. ZOFRAN GIVEN PER PT REQUEST. CALL LIGHT AND OTHER PERSONAL ITEMS WITH ARE WITH IN REACH. WILL CONTINUE TO MONITOR.
[2019-10-07] VITALS: BP 126/70
[2019-10-07 04:00] VITALS: BP 144/75
--- NOTE | 2019-10-07 05:51 | NUR ---
PT OFF FLOOR. GONE TO X RAY VIA WHEELCHAIR. ACCOMPANY BY HOSPITAL STAFF.
--- NOTE | 2019-10-07 05:59 | NUR ---
PT ARRIVED BACK TO FLOOR VIA WHEELCHAIR ACCOMPANY BY HOSPITAL STAFF. CALL LIGHT WITH IN REACH NO SIGNS OF DISTRESS NOTED. WILL CONTINUE TO MONITOR
[2019-10-07 06:14] LABS: BASOPHILS 0.1 % (0-2); EOSINOPHILS 0 % (0-7); HEMATOCRIT 40.1 % (36.0-48.0); HEMOGLOBIN 12.9 g/dL (12-16); IMMATURE GRANULOCYTES 0.6 % (0-5); LYMPHOCYTES 10.2 % (15-50); MCH 27.7 pg (26.0-34.0); MCHC 32.2 g/dL (31.0-37.0); MCV 86.2 fL (80.0-100.0); MEAN PLATELET VOLUME 12.1 fL (7.4-10.4); MONOCYTES 8.8 % (2-11); NEUTROPHILS 80.3 % (40-80); PLATELET COUNT 145 10x3/uL (130-400); RBC 4.65 10x6/uL (4.00-5.40); RDW 12.9 % (11.5-14.5); WBC 14.4 10x3/uL (4.8-10.8)
[2019-10-07 06:30] LABS: ANION GAP 11.1 mmol/L (8-16); CALCIUM 8.6 mg/dL (8.5-10.1); CARBON DIOXIDE 25.5 mmol/L (21.0-32.0); CREATININE - SERUM 0.9 mg/dL (0.6-1.3); MAGNESIUM - SERUM 2.4 mg/dL (1.8-2.4); POTASSIUM - SERUM 3.6 mmol/L (3.5-5.1)
[2019-10-07 08:55] VITALS: BP 155/73
--- NOTE | 2019-10-07 10:17 | NUR ---
Nutrition Follow-up: Not eating well. C/o N/V and pain this AM. Ate ~25% of breakfast. S/p GES on 10/04 showing markedly delayed gastric emptying. Diet: Cardiac Wt: 136# (10/04); 187.3# (10/03); 185.9# (09/29) Last BM: pt reports several loose BMs today Labs reviewed Meds noted: Reglan, Prednisone, Dulcolax, Miralax, Carafate, Protonix, Zofran, electrolyte protocol -Encourage PO intake and honor food preferences within diet restrictions. -Offer nutrition supplements. -Noted large difference in wts between 10/03 and 10/04. Need new wt; noted daily wts ordered. -RD following.
--- NOTE | 2019-10-07 10:51 | NUR ---
SANDEE SPOKE WITH DR. IQBAL ABOUT HIM SIGNING OFF ON PT TO BE DC'D. HE STATES HE WNATS TO LOOK HER STUFF OVER TO SEE IF SHE NEEDS ANY MEDS FOR HOME AND HE WILL COME BY AND SEE HER FIRST BEFORE SIGNING OFF. I VERBALIZED UNDERSTANDING.
[2019-10-07] MEDS ORDERED: OMNICEF300 MG PO ×2 (12:37→15:18)
[2019-10-07] MEDS ORDERED: DOXYCYCLINE HY100 M2 PO ×2 (12:38→15:18)
--- NOTE | 2019-10-07 12:39 | NUR ---
DR. IQBAL CAME AND SEEN PT AND PUT IN HIS FINAL ORDERS. KATHERIN ANDRADE.
--- NOTE | 2019-10-07 13:51 | NUR ---
LT UPPER ARM MIDLINE DC'D BY ELIZABETH RUSHING. TELEMETRY DC'D. DISCHARGE INSTRUCTIONS GIVEN TO PT. PT HAS NO FURTHER QUESTIONS. CHART COPY SIGNED. PT TAKEN OUT VIA WC BY CRUSHER FEEDER WITH ALL BELONGINGS AND LEFT WITH DAUGHTER IN PERSONAL VEHICLE.
--- NOTE | 2019-10-07 14:28 | NUR ---
I have reviewed this patient and I concur with the Shift Assessment completed by the Licensed Practical Nurse today this shift.
[2019-10-07] MEDS ORDERED: PREDNISONE10 MG PO (15:21)
[2019-10-07] MEDS ORDERED: FEXOFENADINE HC60 MG PO (15:27)
[2019-10-07] MEDS ORDERED: MUCINEX600 MG PO (15:27)
--- NOTE | 2019-10-08 09:09 | MORECARE ---
CASE MANAGEMENT DISCHARGE SUMMARY PATIENT: FERNANDO ELAM ALEX UNIT: [id number] ADM DATE: 09/29/19 AGE: 64 : 53 SEX: F ROOM/BED: D.6526 AUTHOR: BHAVYA,DOC PHYSICIAN: REFERRING PHYSICIAN: PATI LOREDO MD DATE OF SERVICE: 10/08/19 Discharge Plan Patient Name: FERNANDO ELAM Facility: [facility]:[place] : 1955 Planned Disposition: Home Anticipated Discharge Date: Discharge Date: 10/07/2019 Expected LOS: Initial Reviewer: [id number] Initial Review Date: 10/04/2019 Generated: 10/08/19 10:08 am DCP- Discharge Planning Updated by [id number]: Soo Cruz on 10/04/19 1:[address] Patient Name: FERNANDO ELAM Admission Status: ER Accout number: [id number] Admission Date: 09-29-2019 : 1955 Admission Diagnosis:UNSPECIFIED ASTHMA WITH (ACUTE) EXACERBATION Attending: PATI LOREDO Current LOS: 5 Anticipated DC Date: Planned Disposition: Home Primary Insurance: MEDICARE A & B DC Plan - Home with spouse. Spouse or friend (Elza) will transport home. Discharge Planning Comments: CM met with patient to discuss discharge planning/needs. She states she lives independently with her spouse. States she has a walker and nebulizer from [employer]. I discussed availability of inpatient rehab, SNF, home health and additional DME needs. She states she plans on returning home with her spouse and feels this is a safe discharge. She denies needs. No needs identified. CM will continue to follow and assist with discharge planning/needs. Powder Core Tester: Soo Cruz DCPIA - Discharge Planning Initial Assessment Updated by [email or web address]: Soo Cruz on 10/04/19 2:28 pm * Is the patient Alert and Oriented? Yes * How many steps to enter\exit or inside your home? 0/0 * PCP Dr. Gayathri Jaimes * Pharmacy [facility] on [place] * Preadmission Environment Home with Family * ADLs Independent * Equipment Nebulizer Walker * List name and contact numbers for known caregivers / representatives who currently or will assist patient after discharge: Mau Muñoz spouse - [phone] Bertha Chowdary - daughter - [phone] Ester Zamora - friend - [phone] * Verbal permission to speak to the caregivers and representatives has been obtained from the patient. Yes * Community resources currently utilized None * Additional services required to return to the preadmission environment? No * Can the patient safely return to the preadmission environment? Yes * Has this patient been hospitalized within the prior 30 days at any hospital? No Coverage Notice Reviewer: [id number] Wanda Cruz Notice Issued Date-Time: 10/04/2019 14:23 Notice Type: IM Discharge Notice Notice Delivered To: Patient Relationship to Patient: Self Sewer Pipe Press Operator Name: Delivery Method: HAND - Hand Delivered Smitha Days: Prior Verbal Notification: Recipient Understood Notice: Yes Recipient Signature: Yes Med Rec Note Co-signed by Attending: Coverage Notice Comment: IMM explained, signed, given, copy placed in MR Last DP export: 10/04/19 1:35 p Patient Name: FERNANDO ELAM Page [id number] at 0909 All edits/amendments must be made on the electronic document DICTATION DATE: 10/08/19907 ACADEMIC AFFAIRS DIRECTOR: NATHANIEL 10/08/19907 RPT#: [id number] DC DATE:10/07/19 STATUS: DIS IN [facility] [address] [place] [address] END OF REPORT
== END 2019-10-07 16:02 | disposition home or self-care (01) | DRG 194 ==
LOC: D.ER 19:20 → D.M2 22:00
PROVIDERS: Family Medicine; Internal Medicine Pulmonary Disease; ADMIT Internal Medicine Nephrology; ATTEND Internal Medicine Nephrology
PROC: 05HC33Z Insertion of Infusion Device into Left Basilic Vein, Percutaneous Approach (ICD-10-PCS; principal; 2019-10-05)
PROC: B54NZZA Ultrasonography of Left Upper Extremity Veins, Guidance (ICD-10-PCS; 2019-10-05)
DX: J18.9 Pneumonia, unspecified organism (principal); J45.901 Unspecified asthma with (acute) exacerbation; J98.11 Atelectasis; E87.6 Hypokalemia; E78.5 Hyperlipidemia, unspecified; K21.9 Gastro-esophageal reflux disease without esophagitis; I20.9 Angina pectoris, unspecified; K31.84 Gastroparesis; G43.909 Migraine, unspecified, not intractable, without status migrainosus; K59.00 Constipation, unspecified

== ENCOUNTER → 2019-12-06 09:33 | Outpatient (CLI) | payer MEDICARE ==
[2019-10-04 10:34] VITALS: BMI 28.4
[~2019-12-06 09:33] MED LIST changes: +DILAUDID2 MG PO; +DOXYCYCLINE HY100 M2 PO; +DULCOLAX STOOL100 MG PO; +DULCOLAX5 MG PO; +FEXOFENADINE HC60 MG PO; +HYDROCODON-ACE1 EAC7 PO; +MUCINEX600 MG PO
== END | disposition home or self-care (01) ==
LOC: D.LAB 09:33
PROVIDERS: ATTEND Internal Medicine Pulmonary Disease
DX: Z11.59 Encounter for screening for other viral diseases (principal)

== ENCOUNTER → 2019-12-09 08:59 | Outpatient (CLI) | payer MEDICARE ==
[2019-10-04 10:34] VITALS: BMI 28.4
== END | disposition home or self-care (01) ==
LOC: D.RT 11-29 10:00 → D.RAD 11-29 10:45 → D.RT 08:59
PROVIDERS: ATTEND Internal Medicine Pulmonary Disease
DX: J18.9 Pneumonia, unspecified organism (principal); J45.909 Unspecified asthma, uncomplicated; E78.5 Hyperlipidemia, unspecified; I10 Essential (primary) hypertension

== ENCOUNTER → 2020-01-19 08:49 | Outpatient (CLI) | payer MEDICARE ==
[2019-10-04 10:34] VITALS: BMI 28.4
== END | disposition home or self-care (01) ==
LOC: D.CT 08:49
PROVIDERS: ATTEND Internal Medicine Pulmonary Disease
DX: R07.9 Chest pain, unspecified (principal)

== ENCOUNTER 2020-02-12 20:14 | Emergency (ER) | payer MEDICARE ==
[~2020-02-12] VITALS: Ht 172.7 cm; Wt 83.6 kg
[2020-02-12 20:17] VITALS: Ht 172.7 cm; Wt 83.6 kg
[2020-02-12] MEDS ORDERED: DILAUDID2 MG PO (20:19)
[2020-02-12 21:01] LABS: BASOPHILS 0.2 % (0-2); EOSINOPHILS 1.3 % (0-7); HEMATOCRIT 39.6 % (36.0-48.0); IMMATURE GRANULOCYTES 0.1 % (0-5); LYMPHOCYTES 39.5 % (15-50); MCH 28.3 pg (26.0-34.0); MCHC 32.8 g/dL (31.0-37.0); MCV 86.1 fL (80.0-100.0); MEAN PLATELET VOLUME 11.8 fL (7.4-10.4); MONOCYTES 6.8 % (2-11); NEUTROPHILS 52.1 % (40-80); WBC 10.4 10x3/uL (4.8-10.8)
[2020-02-12 21:04] LABS: PLATELET COUNT 215 10x3/uL (130-400)
[2020-02-12 21:06] LABS: APTT 30.7 SECONDS (22.8-39.4); CALC OSMOLALITY 275 mosm/kg (275-300); CALCIUM 8.7 mg/dL (8.5-10.1); CARBON DIOXIDE 27.9 mmol/L (21.0-32.0); CHLORIDE - SERUM 103 mmol/L (98-107); CREATININE - SERUM 0.9 mg/dL (0.6-1.3); GLUCOSE 109 mg/dL (74-106); POTASSIUM - SERUM 3.1 mmol/L (3.5-5.1); PROTIME 13.1 SECONDS (11.6-15.0); SODIUM 138 mmol/L (136-145); UREA NITROGEN 9 mg/dL (7-18); eGFR NON AFRICAN AMERICAN 67 mL/min (90-120)
[2020-02-12 21:07] LABS: D-DIMER-QUANTITATIVE 0.42 ug/mLFEU (0.20-0.54)
[2020-02-12 21:21] LABS: ALBUMIN 3.3 g/dL (3.4-5.0); ALKALINE PHOSPHATASE 124 U/L (30-120); ALT (SGPT) 52 U/L (10-68); BILIRUBIN - TOTAL 0.42 mg/dL (0.2-1.3); CKMB 0.4 U/L (0.0-3.6); CREATINE KINASE 62 UL (21-215); MAGNESIUM - SERUM 1.9 mg/dL (1.8-2.4); PROTEIN - SERUM 7.2 g/dL (6.4-8.2)
[2020-02-12 21:22] LABS: TROPONIN-I < 0.017 ng/mL (0.000-0.060)
[2020-02-13 00:45] VITALS: BP 114/54
== END 2020-02-13 00:45 | disposition home or self-care (01) ==
LOC: D.ER 20:14
PROVIDERS: Family Medicine
DX: R07.9 Chest pain, unspecified (principal); R74.0 Nonspecific elevation of levels of transaminase and lactic acid dehydrogenase [LDH]; R74.8 Abnormal levels of other serum enzymes; R10.13 Epigastric pain; E78.5 Hyperlipidemia, unspecified; E87.6 Hypokalemia; J45.909 Unspecified asthma, uncomplicated

== ENCOUNTER 2020-10-30 05:15 | Day surgery (SDC) | payer MEDICARE ==
[~2020-10-30] VITALS: Ht 172.7 cm; Wt 84.5 kg
--- NOTE | ~2020-10-30 | OP ---
PATIENT NAME: FERNANDO ELAM MEDICAL RECORD: [id number] :53 LOCATION:[facility] ADMISSION DATE: SURGEON: CLIFF DUNCAN DO DATE OF OPERATION: 10/30/2020 PROCEDURE: EGD with biopsies. INDICATION FOR PROCEDURE: Epigastric pain as well as nausea and vomiting. SCOPE: Olympus video gastroscope. MEDICATIONS: Propofol 230 mg IV per anesthesia. ESTIMATED BLOOD LOSS: Minimal. COMPLICATIONS: None. FINDINGS: Informed consent was given. The patient was made comfortable with the above medication. After reaching an adequate level of sedation by slow IV push, the patient was placed on her left side. The endoscope was advanced under direct visualization through the mouth to the second portion of the duodenum. The esophagus appeared normal down to the GE junction. At the GE junction, there was evidence of LA class C reflux-induced esophagitis. Cold forceps biopsies were taken from the squamocolumnar junction to rule out the presence of Rosenthal's mucosa. The endoscope was advanced beyond the GE junction into the stomach and retroflexed to view the cardia and fundus. There appeared to be a small sliding hiatal hernia. There were no associated ulcerations or other abnormalities with this hernia. Throughout the body of the stomach as well as the antrum and prepylorus, there were few areas of erythema, friability, and some congestion. Appearances were consistent with mild chronic gastritis changes. Cold forceps biopsies were taken from the antrum and incisura to submit for histopathology and to rule out the presence of H. pylori. The endoscope was advanced beyond the pylorus into the duodenum, which appeared normal to the second portion. Cold forceps biopsies were randomly taken to submit for histopathology. The endoscope was withdrawn from the patient. The patient tolerated the procedure well and there were no complications. IMPRESSION: 1. LA class C reflux-induced esophagitis. 2. Small sliding hiatal hernia. 3. Mild chronic gastritis changes. 4. Symptoms most likely a result of gastroparesis, which has been confirmed by a gastric emptying scan. PLAN AND RECOMMENDATIONS: 1. Discharge home when recovery parameters are met. 2. Follow up biopsy specimen results. 3. GERD precautions. 4. Eat small frequent meals, low in insoluble fiber and fat content. 5. Omeprazole 40 mg daily times 60 days. 6. Follow up in GI clinic in 4-6 weeks. If nausea and vomiting remains uncontrolled, can consider a trial of Reglan. TRANSINT:[id number] Voice Confirmation ID: [id number] DOCUMENT ID: [id number] OPERATIVE REPORT [id number] FERNANDO ELAM NATHAN A DO CC: [id number] DICTATION DATE: 10/30/20719 ESL PROFESSOR: 10/30/20 08 REG [facility] [address] [place] [id number]
[2020-10-30 06:28] VITALS: Ht 172.7 cm; Wt 84.5 kg
[2020-10-30 06:46] LABS: BASOPHILS 0.5 % (0-2); EOSINOPHILS 2.4 % (0-7); HEMATOCRIT 41.2 % (36.0-48.0); HEMOGLOBIN 13.9 g/dL (12-16); LYMPHOCYTES 28.9 % (15-50); MCH 28.8 pg (26.0-34.0); MCHC 33.8 g/dL (31.0-37.0); MCV 85.3 fL (80.0-100.0); MEAN PLATELET VOLUME 10.1 fL (7.4-10.4); MONOCYTES 6.2 % (2-11); PLATELET COUNT 197 10x3/uL (130-400); RBC 4.83 10x6/uL (4.00-5.40); RDW 14.1 % (11.5-14.5)
[2020-10-30 06:51] LABS: CALC OSMOLALITY 279 mosm/kg (275-300); CALCIUM 8.8 mg/dL (8.5-10.1); CARBON DIOXIDE 27.2 mmol/L (21.0-32.0); CHLORIDE - SERUM 105 mmol/L (98-107); CREATININE - SERUM 0.8 mg/dL (0.6-1.3); GLUCOSE 121 mg/dL (74-106); POTASSIUM - SERUM 3.6 mmol/L (3.5-5.1); SODIUM 141 mmol/L (136-145); UREA NITROGEN 8 mg/dL (7-18); eGFR NON AFRICAN AMERICAN 76 mL/min (90-120)
--- NOTE | 2020-10-30 07:45 | NUR ---
PT NAUSEATED, VOMITED, GIVEN ZOFRAN, F/U APPT ORDER FAXED, 8011 NAUSEA BETTER, DC TEACHING TO PT AND , VERBALIZED UNDERSTANDING, PIV REMOVED WITH CATHETER INTACT, THIS NURSE AND ASSISTED PT IN GETTING DRESSED 0850 PT DC'D VIA WC ACCOMPANIED BY LILLIANA RUSHING TO POV WITH DRIVING. ALL BELONGINGS AND DC PACKET WITH PT/
== END 2020-10-30 08:45 | disposition home or self-care (01) ==
LOC: D.OPS 05:15
PROVIDERS: Anesthesiology; ATTEND Internal Medicine Gastroenterology
DX: R10.13 Epigastric pain (principal); R11.2 Nausea with vomiting, unspecified; K21.00 Gastro-esophageal reflux disease with esophagitis, without bleeding; K44.9 Diaphragmatic hernia without obstruction or gangrene; K29.50 Unspecified chronic gastritis without bleeding; K31.84 Gastroparesis; J45.909 Unspecified asthma, uncomplicated; Z86.010 Personal history of colon polyps; I10 Essential (primary) hypertension; I50.9 Heart failure, unspecified; K64.0 First degree hemorrhoids